=== PATIENT | male | born 1960 | race Two or more races ===

== ENCOUNTER 2025-09-07 15:00 | Inpatient (IN) | payer MEDICARE, SELFPAY ==
[2025-09-07 15:13] VITALS: BP 130/79; PULSE 84; RESP 16; TEMP 36.6; O2SAT 95
[2025-09-07 17:41] VITALS: BP 130/79; PULSE 84; RESP 16; TEMP 36.6; O2SAT 95
[2025-09-07 20:12] VITALS: BP 135/73; PULSE 75
[2025-09-07] MEDS: SACUBITRIL/VALSARTAN 24/26 MG TABLET 1 EACH PO (20:19)
[2025-09-07] MEDS: Senna/Docusate Sodium 1 Tablet 2 TABLET PO (20:20)
--- NOTE | 2025-09-07 21:21 | EX.PCM.HP.RE ---
HPI - General General Date of Admission: 09/07/25 Date of Service: 09/07/25 Chief Complaint: Here for 3 hours daily rehabilitation. HPI Narrative KIERA GOMEZ, is a 65 M who presents with followin09/01/[address] [facility]. Dizziness, left hand paresthesia, chronic blurry vision. Evaluated for stroke. 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 NIHSS 0 on admission. Bradycardia with heart rate of 49. CT head negative, dizziness thought to be 2/2 viral syndrome. He has not seen a doctor for 2 years. He later developed numbness of left face, left scalp, left arm, left leg. Imaging showed acute right medial medullary infarct without hemorrhage, significant left internal carotid artery stenosis, possible left basilar artery nonocclusive thrombus/dissection, that was not redemonstrated on CTA. 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 09/04/2025 Cardiology consulted for Echo low LVEF 45 - 50% with minor regional variations, apex appears abnormal, EKG showed normal sinus rhythm with no signs of acute ischemic changes. Recommended right and left heart catheterization. Cardiac catheterization negative without evidence of acute ischemic process. Recommended Aspirin 81mg daily, Atorvastatin 80mg qhs, Entresto 24/26mg bid, hold beta isidra 2/2 bradycardia, Jardiance 10mg daily, Aldactone to start as outpatient. 09/06/2025 Swallowing issues resolved. Recurrence and worsening of numbness/tingling with mild weakness to left upper extremity, attributed to malpositioning while sleeping. Repeat CT head no contrast negative for hemorrhagic conversion of stroke. Doppler ultrasound left upper extremity negative for DVT. PT/OT/ST. 09/07/2025 Admit to for 3 hours daily rehabilitation, strengthening, prior to discharge home with . [facility] Medical History (Updated 09/07/25 @ 21:[address] Chano Bradley MD) Acute HFrEF (heart failure with reduced ejection fraction) BMI 34.0-34.9,adult Chronic HFrEF (heart failure with reduced ejection fraction) Type 2 diabetes mellitus with hyperglycemia Hyperlipidemia Stroke Numbness of left hand Vertigo Bradycardia Debility History of left heart catheterization Hyperglycemia Glycosuria Home Medications ?Medication ?Instructions ?Recorded ?Last Taken ?Type aspirin 81 mg chewable tablet 1 tab PO DAILY heart health 09/07/25 09/07/25 History atorvastatin 80 mg tablet (Lipitor) 80 mg PO QHS cholesterol 09/07/25 09/06/25 History clopidogrel 75 mg tablet (Plavix) 75 mg PO DAILY DVT prophalaxis 09/07/25 Unknown History empagliflozin 10 mg tablet 10 mg PO DAILY glucose 09/07/25 09/07/25 History (Jardiance) meclizine 25 mg tablet 50 mg PO DAILY PRN dizziness or 09/07/25 Unknown History vertigo metformin 500 mg tablet,extended 500 mg PO DAILY glucose 09/07/25 Unknown History release 24 hr (Glucophage XR) sacubitril 24 mg-valsartan 26 mg 1 tab PO BID CHF 09/07/25 09/07/25 History tablet (Entresto) Allergy/AdvReac Type Severity Reaction Status Date / Time No Known Allergies Allergy Verified 09/07/25 15:14 Family History unable to obtain Surgical History (Updated 09/07/25 @ 15:33 by Adriana Talley) H/O right heart catheterization H/O vasectomy Social History (Updated 09/07/25 @ 21:[address] Chano Bradley MD) household members: spouse housing: house Smoking Status: Never smoker alcohol intake: current alcohol intake frequency: 0-2 drinks per day substance use type: does not use ROS Constitutional Constitutional: Reports weakness; Denies chills, fever(s) or weight gain ENT HEENT: Denies headache(s), nasal congestion or nasal discharge Cardiovascular Cardiovascular: Denies chest pain or palpitations Respiratory/Chest Respiratory/Chest: Denies cough, excessive phlegm production or shortness of breath with exertion Gastrointestinal Gastrointestinal: Denies abdominal pain, nausea or vomiting Genitourinary Genitourinary: Denies dysuria Musculoskeletal Musculoskeletal: Reports neck pain; Denies joint pain or joint swelling Integumentary Integumentary: Denies rash or wounds Neurologic Neurologic: Reports abnormal speech, dizziness, numbness, sensory deficit, tingling and weakness; Denies focal weakness Psychiatric Psychiatric: Denies anxiety, auditory hallucinations, depression, homicidal ideation or suicidal ideation Vital Signs Vital Signs Vital Signs: 09/07/25 15:13 09/07/25 15:14 09/07/25 16:50 Temperature 97.9 F Temperature Source Temporal Pulse Rate 84 Respiratory Rate 16 Respiratory Effort Normal Non-Labored Respiratory Depth Normal Respiratory Pattern Normal Blood Pressure 130/79 H Blood Pressure Mean 96 Blood Pressure Source Monitor Blood Pressure Position Sitting Blood Pressure Location Left Arm Pulse Ox 95 Oxygen Delivery Method Room Air Room Air Room Air 09/07/25 17:41 09/07/25 20:12 09/07/25 20:38 Temperature 97.9 F Temperature Source Temporal Pulse Rate 84 75 Respiratory Rate 16 Respiratory Effort Normal Non-Labored Respiratory Depth Normal Respiratory Pattern Normal Blood Pressure 130/79 H 135/73 H Blood Pressure Mean 96 93 Blood Pressure Source Monitor Monitor Blood Pressure Position Sitting Semi-Fowlers Blood Pressure Location Left Arm Left Arm Pulse Ox 95 Oxygen Delivery Method Room Air Room Air Indicators for Scoring Admitted with or Primary Diagnosis of CVA/Stroke: Yes Hx of CVA/Stroke: No Modified Reta Score MRS Score at time of Evaluation: 3-Moderate disability NIHSS NIHSS 1a. Level of Consciousness: 0 - Alert; keenly responsive 1b. LOC Questions: 0 - Answers BOTH questions correctly 2. Best Gaze: 0 - Normal 3. Visual: 0 - No visual loss 4. Facial Palsy: 0 - Normal symmetrical movements 5a. Left Arm: 1 - Drift; arm drifts downward but doesn?t hit the bed 5b. Right Arm: 0 - No drift; arm holds 90 (or 45) degrees for full 10 seconds 6a. Left Le - Drift; leg falls by the end of 5-seconds, but does not hit bed 6b. Right Le - No drift; leg holds 30-degree position for full 5 seconds 7. Limb Ataxia: 0 - Absent 8. Sensory: 1 - Bsoj-gh-sauqeybt sensory loss; 9. Best Language: 0 - No aphasia; normal 10. Dysarthria: 1 = [id number] dysarthria; 11. Extinction and Inattention: 0 - No abnormality Total: 4 Physical Exam Const alert General Appearance: cooperative HEENT normocephalic Eyes PERRL and EOMs intact bilaterally Neck supple, no JVD and no carotid bruits Resp normal respiratory effort, normal air movement and clear to auscultation bilaterally Cardio regular rate and regular rhythm GI normal to inspection, nondistended, normoactive bowel sounds, non-tender and non-distended Extremity normal capillary refill General Extremity: Negative for edema Skin no rashes or lesions noted General Skin Exam: no breakdown Neuro Neuro Narrative: Left hemiparesis, left paresthesia. Speech: speech abnormal Details: Positive for slurred (Mild. ) Psych affect normal Appearance: appropriate Results Lab / Micro Data Labs: Laboratory Results - last 24 hr 09/07/25 16:18: POC Glucose 136 H Assessment & Plan Assessment/Plan (1) Debility: (2) Bradycardia: (3) Vertigo: (4) Numbness of left hand: (5) Stroke: (6) Hyperlipidemia: (7) Type 2 diabetes mellitus with hyperglycemia: (8) BMI 34.0-34.9,adult: (9) Acute HFrEF (heart failure with reduced ejection fraction): (10) Left carotid artery stenosis: PLAN: Plan 65 year old male with below past medical history hospitalized for right stroke with left hemiparesis, complicated by acute HFrEF, cardiac catheterization negative, complicated by left carotid artery stenosis, admitted to for 3 hours daily rehabilitation, strengthening, prior to discharge home with . Debility - PT/OT/ST. Pain - Tylenol 1000mg q6 prn pain (1-10). Bowel - senna/colace 2 tablets bid, Dulcolax 10mg pr daily prn, MOM 30mL po daily prn. DVT prophylaxis - Hold, on dual antiplatelet therapy. Left carotid artery stenosis - order carotid doppler ultarsound. Stroke - Aspirin 81mg daily, Plavix 75mg daily thru 10/08/2025. Hyperlipidemia - Atorvastatin 80mg qhs. Acute HFrEF - Entresto 24/26mg bid, Jardiance 10mg daily. Vertigo - Meclizine 50mg daily prn. Diabetes Mellitus II - Metformin XR 500mg daily.
--- NOTE | 2025-09-07 22:12 | CDU_ITS ---
Reason For Study VL/Carotid Duplex Ultrasound
[2025-09-08 06:00] VITALS: BP 132/67; PULSE 70; RESP 16; TEMP 37.1; O2SAT 96
[2025-09-08 06:16] LABS: Hematocrit 49.5 % (40-54); Hemoglobin 16.7 g/dL (13.0-16.5); Immature Granulocytes Count 0.040 X10^3/uL (0.0-0.0); Mean Corp Hgb Conc 33.7 g/dL (32-36); Mean Corpuscular Volume 85.9 fL (80-94); Mean Platelet Vol. 9.5 fl (6.2-12.0); NRBC Flagged by Analyzer 0 % (0-5); Platelet Count 214 K/mm3 (150-450); RBC Distribution Width CV 12.5 % (11.6-14.6); RBC Distribution Width SD 38.7 fl (35.1-43.9); Red Blood Count 5.76 M/mm3 (4.6-6.2); White Blood Count 9.0 K/mm3 (4.4-11.0)
[2025-09-08 06:53] LABS: AST(SGOT) 37 U/L (<=37); Alanine Aminotransfer ALT/SGPT 66 U/L (<=46); Albumin, Serum 4.2 g/dL (3.4-4.8); Alkaline Phosphatase 71 U/L (40-129); Anion Gap 12 (5-15); BUN 27 mg/dL (4-19); BUN/Creat Ratio 31.2 RATIO (10-20); Calcium,Total 9.0 mg/dL (7.6-11.0); Carbon Dioxide 20.8 mmol/L (21.0-32.0); Chloride 104 mmol/L (98-108); Globulin 2.6 g/dL (2.2-4.2); Glucose 120 mg/dL (70-99); Magnesium 2.4 mg/dL (1.5-2.2); Potassium 4.5 mmol/L (3.3-5.1)
[2025-09-08 07:18] VITALS: O2SAT 92
[2025-09-08 07:26] VITALS: BMI 32.6
[2025-09-08] MEDS: metFORMIN (XR) 500 MG Tablet PO (08:36)
[2025-09-08] MEDS: Senna/Docusate Sodium 1 Tablet 2 TABLET PO ×2 (08:36→20:50)
[2025-09-08] MEDS: SACUBITRIL/VALSARTAN 24/26 MG TABLET 1 EACH PO ×2 (08:36→20:50)
--- NOTE | 2025-09-08 11:53 | REHABEVAL_ITS ---
Admission Information
--- NOTE | 2025-09-08 11:53 | PCM.RU.PYE ---
Admission Information Primary Diagnosis:: Stroke. Status Changes from Prescreening?: No changes Identified Actual Problem List:: Falls, Mobility Impaired, Self Care Deficit, Ineffective Communication, Know.Dfct/Disease Process, Know.Dfct of Medicaitons, Diabetes, Hyperglycemia, Diabetes, Hypoglycemia and Alteration-Leisure Activ. Potential Problem List:: DVT, Bleeding, Infection, UTI, Aspiration, Falls, Skin Integrity and Depression Risk of Complications DVT: LMWH, MIRNA Hose and Sequential Compression Device Bleeding: Monitor Lab Values, Nursing to Teach Precautions for anti-coagulation therapy., Wound, if applicable, to be assessed every shift. and Stroke patients assessed for lethargy or change in status. Infection: Clinical Staff to Monitor for S/S of infection: and S/S of infection include fever, redness, warmth, etc. Urinary Tract Infection: Monitor for frequency, burning, discomfort, or incontinence. and Nursing will obtain urine sample for urinalysis and C&S when ordered. Aspiration: Clinical staff will monitor for coughing, drooling, congestion., Speech will evaluate swallowing and dsyphasia. and Nursing will monitor patient swallowing during meals. Falls: Patient will be evaluated for Fall Precautions and Patient will be placed on Fall Precautions as indicated per protocol. Skin Breakdown: Nursing will assess skin daily using assessment tool. and Nursing will place on Skin Breakdown Precautions as indicated. Pain: Clinical staff will assess patient's pain level per protocol., Medications will be given, if needed, and the pain level reassessed. and Other methods: Massage, distraction, decrease stimulus, etc. used PRN. Plan of Care Patient requires physician specializing in physical medicine and rehab oversight to provide close medical supervision of rehab issues including: Pain Management, Sleep Problems, Bowel and Bladder, Medical and co-morbidity Management, DVT prophylaxis, Rehabilitation Leadership and Coordination of treatment team Patient needs Physical Therapy: For a minimum of 1 hour Patient needs Physical Therapy to improve:: Mobility, Strengthening, Transfers, Stretching, ROM, Endurance, Stairs, Gait and Balance Patient needs Occupational Therapy: For a minimum of 1 hour Patient needs Occupational Therapy to improve ADL's incl.: Eating, Grooming, Bathing, Dressing, Toileting, Toilet transfers, Community Reintegration, Higher functioning activities, Household tasks, Adaptive Equipment, Splinting and Other activities as determined Patient requires speech therapy: For a minimum of 1 hour Patient requires speech therapy for: Swallowing, Cognition, Language Skills and Compensatory Strategies Patient requires 24/7 Rehabilitation Nursing for: Pain Issues, Identifying and preventing risk factors, Monitoring and reporting current medical conditions, Assisting with ambulation, transfer, and all ADL's, Teaching patients about disease process and medications, Family teaching, Providing safe environment, Bowel and Bladder Issues, Skin integrity and Medication Management Patient needs Profile Trimmer/ Case Management for: Discharge Planning, Arranging Home Equipment or Services and Family Interventions Patient needs Dietary and Nutrition Services for: Adequate Nutrition, Nutritional Supplements and Nutritional Education Goals Goals Patient will remain: free from falls and or injury at time of discharge. Patient will perform bed mobility at: - (Independent.) Patient will complete transfers from bed to chair at: - (FWW with SBA to SUP.) Patient will ambulate: - (200 feet FWW with CGA to SBA.) Patient will complete upper body dressing at: MOD I level of assist. Patient will complete lower body dressing at: MOD I level of assist. Patient will complete toileting at: MOD I level of assist. Patient will perform bathing at: MOD I level of assist. Patient will achieve: - (4 steps with left side HR with FWW or Orlando Walker with CGA to SBA x 1.) Patient will have pain level of: of 3 or less Patient's skin will: remain intact and free from infection. Patient will receive: adequate nutrition. Discharge Planning Pt Prognosis for Sig. Practical Improv. w/in Reasonable Time: Good Estimated Length of stay (days): 14 Anticipated D/C Destination: Home with Outpt Therapy Was Preadmission Assessment Accurate?: Yes
[2025-09-08 18:00] VITALS: BP 113/72; PULSE 72; RESP 18; TEMP 36.1; O2SAT 94
[2025-09-09 06:00] VITALS: BP 127/68; PULSE 84; RESP 17; TEMP 36.7; O2SAT 96
[2025-09-09] MEDS: SACUBITRIL/VALSARTAN 24/26 MG TABLET 1 EACH PO ×2 (07:46→20:51)
[2025-09-09] MEDS: metFORMIN (XR) 500 MG Tablet PO (07:46)
[2025-09-09] MEDS: Senna/Docusate Sodium 1 Tablet 2 TABLET PO ×2 (07:47→20:51)
[2025-09-09 17:13] VITALS: BP 118/81; PULSE 69; RESP 18; TEMP 36.6; O2SAT 96
[2025-09-10 06:16] VITALS: BP 118/78; PULSE 64; RESP 16; TEMP 36.6; O2SAT 95
[2025-09-10] MEDS: metFORMIN (XR) 500 MG Tablet PO (07:55)
[2025-09-10] MEDS: SACUBITRIL/VALSARTAN 24/26 MG TABLET 1 EACH PO ×2 (07:56→21:49)
[2025-09-10] MEDS: Senna/Docusate Sodium 1 Tablet 2 TABLET PO ×2 (07:56→21:49)
[2025-09-10 07:59] VITALS: O2SAT 95
--- NOTE | 2025-09-10 08:33 | CASEMGMT ---
Social Work IDT met with patient at bedside, and participated via conference call for Team meeting. 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 Educated to [facility] insurance with [employer] 09/12 and continued stay is not guaranteed with each review, and advanced notice is not required. Pt is currently x2 assist and goal is to get closer to PLOF before DC. SW provided stroke support group brochure, ASA Life After a Stroke and Caregiver Guide to a Stroke. Will ReTeam weekly. SW will continue to follow for DC planning. 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
--- NOTE | 2025-09-10 09:07 | EX.PCM.PN.RE ---
Subjective Subjective Patient seen, examined, also seen on team rounds. He has no new problems, concerns, issues, complaints. He is progressing with therapy. Objective Data Objective Data Vital Signs: Vital Signs Temp Pulse Resp BP Pulse Ox O2 Del Method 97.9 F 64 16 118/78 95 Room Air 09/10/25 06:16 09/10/25 06:16 09/10/25 06:16 09/10/25 06:16 09/10/25 07:59 09/10/25 07:59 Oxygen Delivery Method Room Air Weight: 97.522 kg Body Mass Index (BMI) 32.6 Intake & Output: Intake and Output for Last 24 Hours 09/08/25 09/09/25 09/10/25 23:59 23:59 23:59 Intake Total 2400 / 2400 2550 / 2550 440 / 440 Output Total 2350 / 2350 2375 / 2375 650 / 650 Balance 50 / 50 175 / 175 -210 / -210 Lab / Micro Data 09/08/25 06:05 09/08/25 06:05 Labs: Laboratory Results - last 24 hr 09/09/25 11:24: POC Glucose 133 H 09/09/25 16:33: POC Glucose 134 H 09/09/25 21:31: POC Glucose 125 H 09/10/25 06:18: POC Glucose 106 Indicators for Scoring Admitted with or Primary Diagnosis of CVA/Stroke: Yes Hx of CVA/Stroke: No Modified Warren Score MRS Score at time of Evaluation: 3-Moderate disability Physical Exam Const alert General Appearance: cooperative HEENT normocephalic Eyes PERRL and EOMs intact bilaterally Neck supple, no JVD and no carotid bruits Resp normal respiratory effort, normal air movement and clear to auscultation bilaterally Cardio regular rate and regular rhythm GI normal to inspection, nondistended, normoactive bowel sounds, non-tender and non-distended Extremity normal capillary refill General Extremity: Negative for edema Skin no rashes or lesions noted General Skin Exam: no breakdown Neuro Neuro Narrative: Left hemiparesis, left paresthesia. Speech: speech abnormal Details: Positive for slurred (Mild. ) Psych affect normal Appearance: appropriate Assessment & Plan Assessment/Plan (1) Debility: (2) Bradycardia: (3) Vertigo: (4) Numbness of left hand: (5) Stroke: (6) Hyperlipidemia: (7) Type 2 diabetes mellitus with hyperglycemia: (8) BMI 34.0-34.9,adult: (9) Acute HFrEF (heart failure with reduced ejection fraction): (10) Left carotid artery stenosis: PLAN: Plan 65 year old male with below past medical history hospitalized for right stroke with left hemiparesis, complicated by acute HFrEF, cardiac catheterization negative, complicated by left carotid artery stenosis, admitted to for 3 hours daily rehabilitation, strengthening, prior to discharge home with . Debility - PT/OT/ST. Pain - Tylenol 1000mg q6 prn pain (1-10). Bowel - senna/colace 2 tablets bid, Dulcolax 10mg pr daily prn, MOM 30mL po daily prn. DVT prophylaxis - Hold, on dual antiplatelet therapy. Left carotid artery stenosis - order carotid doppler ultarsound. Stroke - Aspirin 81mg daily, Plavix 75mg daily thru 10/08/2025. Hyperlipidemia - Atorvastatin 80mg qhs. Acute HFrEF - Entresto 24/26mg bid, Jardiance 10mg daily. Vertigo - Meclizine 50mg daily prn. Diabetes Mellitus II - Metformin XR 500mg daily.
--- NOTE | 2025-09-10 15:55 | CHAPLAIN ---
Type of Pastoral Visit _x__ Initial Visit ___ Follow-up Visit ___ On-call Visit ___ General Patient Visit ___ Spiritual Assessment ___ Family Conference ___ Bereavement ___ Rapid Response ___ Code Blue ___ Other (describe below) Pastoral Care Referral From _x__ Patient ___ Family ___ Nurse ___ Physician ___ Cable Splicer ___ Tissue Technologist ___ Other (describe below) Sacrament/Intervention _x__ Active listening ___ Anointing ___ Rastafarian ___ Bereavement ___ Communion ___ Kirsten exploration ___ _x__ Life review _x__ Prayer ___ Reconciliation ___ Sacrament of Sick _x__ Supportive presence ___ Wedding ___ Other (describe below) Pastoral Comments patient is welcoming and talkative about his life; pt admits to sudden change in life and 'I've not been in the hospital before' and this new experience; pt is asked about how he is managing and what perspective or thoughts about life have changed; 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
--- NOTE | 2025-09-10 17:25 | NURSING ---
Dr. Bradley reviewed carotid US report.
[2025-09-10 17:43] VITALS: BP 123/86; PULSE 65; RESP 18; TEMP 36.4; O2SAT 96
[2025-09-10 19:51] VITALS: BMI 32.6
[2025-09-10 19:52] VITALS: RESP 16; O2SAT 96
[2025-09-11 06:00] VITALS: BP 114/71; PULSE 71; RESP 15; TEMP 36.5; O2SAT 96
[2025-09-11] MEDS: SACUBITRIL/VALSARTAN 24/26 MG TABLET 1 EACH PO ×2 (07:30→19:43)
[2025-09-11] MEDS: Senna/Docusate Sodium 1 Tablet 2 TABLET PO ×2 (07:30→19:42)
[2025-09-11] MEDS: metFORMIN (XR) 500 MG Tablet PO (07:31)
--- NOTE | 2025-09-11 08:28 | EX.PCM.PN.RE ---
Subjective Subjective Patient seen, examined. Carotid duplex yesterday showed 50% right, 70% left. We discussed findings, since stroke was right with left werner, recommend outpatient follow up of carotid artery stenosis, urgent intervention not necessary, continue medical therapy for now. No acute events overnight, no new complaints. Objective Data Objective Data Vital Signs: Vital Signs Temp Pulse Resp BP Pulse Ox O2 Del Method 97.7 F L 71 15 114/71 96 Room Air 09/11/25 06:00 09/11/25 06:00 09/11/25 06:00 09/11/25 06:00 09/11/25 06:00 09/11/25 06:00 Oxygen Delivery Method Room Air Weight: 97.522 kg Body Mass Index (BMI) 32.6 Intake & Output: Intake and Output for Last 24 Hours 09/09/25 09/10/25 09/11/25 23:59 23:59 23:59 Intake Total 2550 / 2550 1880 / 1880 790 / 790 Output Total 2375 / 2375 1725 / 1725 720 / 720 Balance 175 / 175 155 / 155 70 / 70 Lab / Micro Data 09/08/25 06:05 09/08/25 06:05 Labs: Laboratory Results - last 24 hr 09/10/25 11:12: POC Glucose 127 H 09/10/25 16:19: POC Glucose 109 H 09/10/25 21:52: POC Glucose 103 09/11/25 06:37: POC Glucose 123 H Radiography Diagnostic Testing: Radiology Impression Carotid Duplex 09/07/25 22:12 Interpretation Summary Mild (<50%) stenosis right extracranial internal carotid. Severe (>70%) stenosis left extracranial internal carotid. Patent and antegrade vertebrals bilaterally Ordering Physician: Chano Bradley Chi Performed By: Malou Carrillo RVT Indicators for Scoring Admitted with or Primary Diagnosis of CVA/Stroke: Yes Hx of CVA/Stroke: Yes Modified Reta Score MRS Score at time of Evaluation: 3-Moderate disability Physical Exam Const alert General Appearance: cooperative HEENT normocephalic Eyes PERRL and EOMs intact bilaterally Neck supple, no JVD and no carotid bruits Resp normal respiratory effort, normal air movement and clear to auscultation bilaterally Cardio regular rate and regular rhythm GI normal to inspection, nondistended, normoactive bowel sounds, non-tender and non-distended Extremity normal capillary refill General Extremity: Negative for edema Skin no rashes or lesions noted General Skin Exam: no breakdown Neuro Neuro Narrative: Left hemiparesis, left paresthesia. Speech: speech abnormal Details: Positive for slurred (Mild. ) Psych affect normal Appearance: appropriate Assessment & Plan Assessment/Plan (1) Debility: (2) Bradycardia: (3) Vertigo: (4) Numbness of left hand: (5) Stroke: (6) Hyperlipidemia: (7) Type 2 diabetes mellitus with hyperglycemia: (8) BMI 34.0-34.9,adult: (9) Acute HFrEF (heart failure with reduced ejection fraction): (10) Left carotid artery stenosis: PLAN: Plan 65 year old male with below past medical history hospitalized for right stroke with left hemiparesis, complicated by acute HFrEF, cardiac catheterization negative, complicated by left carotid artery stenosis, admitted to for 3 hours daily rehabilitation, strengthening, prior to discharge home with . Debility - PT/OT/ST. Pain - Tylenol 1000mg q6 prn pain (1-10). Bowel - senna/colace 2 tablets bid, Dulcolax 10mg pr daily prn, MOM 30mL po daily prn. DVT prophylaxis - Hold, on dual antiplatelet therapy. Left carotid artery stenosis - 70%, recommend outpatient follow up with PCP/Vascular surgery to consider intervention. Stroke - Aspirin 81mg daily, Plavix 75mg daily thru 10/08/2025. Hyperlipidemia - Atorvastatin 80mg qhs. Acute HFrEF - Entresto 24/26mg bid, Jardiance 10mg daily. Vertigo - Meclizine 50mg daily prn. Diabetes Mellitus II - Metformin XR 500mg daily.
[2025-09-11 08:42] VITALS: BMI 32.6
[2025-09-11 17:33] VITALS: BP 105/73; PULSE 64; RESP 18; TEMP 36.1; O2SAT 96
[2025-09-11 19:36] VITALS: BMI 32.6
[2025-09-11 20:50] VITALS: O2SAT 96
[2025-09-11 22:50] VITALS: BMI 32.6
[2025-09-12 05:54] VITALS: BP 114/75; PULSE 65; RESP 16; TEMP 36.4; O2SAT 97
[2025-09-12] MEDS: SACUBITRIL/VALSARTAN 24/26 MG TABLET 1 EACH PO ×2 (07:55→20:33)
[2025-09-12] MEDS: Senna/Docusate Sodium 1 Tablet 2 TABLET PO ×2 (07:55→20:33)
[2025-09-12] MEDS: metFORMIN (XR) 500 MG Tablet PO (07:55)
[2025-09-12 07:57] VITALS: BP 139/68; PULSE 66
--- NOTE | 2025-09-12 08:45 | EX.PCM.PN.RE ---
Subjective Subjective Patient seen, examined. No acute events overnight, no new complaints. He is starting therapy with [facility]. He is continuing to progress with therapy. Objective Data Objective Data Vital Signs: Vital Signs Temp Pulse Resp BP Pulse Ox O2 Del Method 97.6 F L 66 16 139/68 H 97 Room Air 09/12/25 05:54 09/12/25 07:57 09/12/25 05:54 09/12/25 07:57 09/12/25 05:54 09/12/25 05:54 Oxygen Delivery Method Room Air Weight: 97.522 kg Body Mass Index (BMI) 32.6 Intake & Output: Intake and Output for Last 24 Hours 09/10/25 09/11/25 09/12/25 23:59 23:59 23:59 Intake Total 1880 / 1880 2140 / 2140 250 / 250 Output Total 1725 / 1725 1595 / 1595 650 / 650 Balance 155 / 155 545 / 545 -400 / -400 Lab / Micro Data 09/08/25 06:05 09/08/25 06:05 Labs: Laboratory Results - last 24 hr 09/11/25 11:42: POC Glucose 100 09/11/25 16:00: POC Glucose 113 H 09/12/25 06:41: POC Glucose 120 H Indicators for Scoring Admitted with or Primary Diagnosis of CVA/Stroke: Yes Hx of CVA/Stroke: Yes Modified Wood Score MRS Score at time of Evaluation: 3-Moderate disability Physical Exam Const alert General Appearance: cooperative HEENT normocephalic Eyes PERRL and EOMs intact bilaterally Neck supple, no JVD and no carotid bruits Resp normal respiratory effort, normal air movement and clear to auscultation bilaterally Cardio regular rate and regular rhythm GI normal to inspection, nondistended, normoactive bowel sounds, non-tender and non-distended Extremity normal capillary refill General Extremity: Negative for edema Skin no rashes or lesions noted General Skin Exam: no breakdown Neuro Neuro Narrative: Left hemiparesis, left paresthesia. Speech: speech abnormal Details: Positive for slurred (Mild. ) Psych affect normal Appearance: appropriate Assessment & Plan Assessment/Plan (1) Debility: (2) Bradycardia: (3) Vertigo: (4) Numbness of left hand: (5) Stroke: (6) Hyperlipidemia: (7) Type 2 diabetes mellitus with hyperglycemia: (8) BMI 34.0-34.9,adult: (9) Acute HFrEF (heart failure with reduced ejection fraction): (10) Left carotid artery stenosis: PLAN: Plan 65 year old male with below past medical history hospitalized for right stroke with left hemiparesis, complicated by acute HFrEF, cardiac catheterization negative, complicated by left carotid artery stenosis, admitted to for 3 hours daily rehabilitation, strengthening, prior to discharge home with . Debility - PT/OT/ST. Pain - Tylenol 1000mg q6 prn pain (1-10). Bowel - senna/colace 2 tablets bid, Dulcolax 10mg pr daily prn, MOM 30mL po daily prn. DVT prophylaxis - Hold, on dual antiplatelet therapy. Left carotid artery stenosis - 70%, recommend outpatient follow up with PCP/Vascular surgery to consider intervention. Stroke - Aspirin 81mg daily, Plavix 75mg daily thru 10/08/2025. Hyperlipidemia - Atorvastatin 80mg qhs. Acute HFrEF - Entresto 24/26mg bid, Jardiance 10mg daily. Vertigo - Meclizine 50mg daily prn. Diabetes Mellitus II - Metformin XR 500mg daily.
[2025-09-12 18:00] VITALS: BP 135/72; PULSE 72; RESP 16; TEMP 37; O2SAT 96
[2025-09-12 18:09] VITALS: BMI 32.6
[2025-09-13 05:00] VITALS: BMI 32.6
[2025-09-13 05:51] VITALS: BP 114/66; PULSE 72; RESP 16; TEMP 36.6; O2SAT 94
[2025-09-13] MEDS: metFORMIN (XR) 500 MG Tablet PO (08:59)
[2025-09-13] MEDS: Senna/Docusate Sodium 1 Tablet 2 TABLET PO ×2 (09:00→19:59)
[2025-09-13] MEDS: SACUBITRIL/VALSARTAN 24/26 MG TABLET 1 EACH PO ×2 (09:00→19:59)
[2025-09-13 17:00] VITALS: BMI 32.6
[2025-09-13 18:00] VITALS: BP 120/75; PULSE 68; RESP 16; TEMP 36.5; O2SAT 96
[2025-09-14 04:49] VITALS: BMI 32.6
[2025-09-14 06:00] VITALS: BP 116/72; PULSE 81; RESP 16; TEMP 36.4; O2SAT 98
[2025-09-14 06:21] VITALS: BMI 32.1
[2025-09-14] MEDS: metFORMIN (XR) 500 MG Tablet PO (08:22)
[2025-09-14] MEDS: Senna/Docusate Sodium 1 Tablet 2 TABLET PO (08:22)
[2025-09-14] MEDS: SACUBITRIL/VALSARTAN 24/26 MG TABLET 1 EACH PO ×2 (08:22→20:45)
[2025-09-14 08:27] VITALS: BP 121/73; PULSE 72
[2025-09-14 12:32] VITALS: BMI 32.1
--- NOTE | 2025-09-14 13:51 | VDLE_ITS ---
Reason For Study VL/Venous Duplex US, Unilateral
--- NOTE | 2025-09-14 14:18 | NURSING ---
Fransico that performed the Doppler at this time on Mr. Mcwilliams informed this nurse that the Doppler was negative.
--- NOTE | 2025-09-14 15:00 | CASEMGMT ---
Social Work SW spoke with the patient. Patient did not want to complete POA/LW paperwork but wanted information so he can think about it. SW provided the patient with an informational packet, a blank POA/LW paperwork and a phone number to call after DC to receive assistance with completing the POA/LW. DOMI Davis
[2025-09-14 18:00] VITALS: BP 122/75; PULSE 69; RESP 17; TEMP 36.2; O2SAT 97
[2025-09-14 20:43] VITALS: BP 131/74; PULSE 63
[2025-09-14 22:48] VITALS: BMI 32.1
[2025-09-15 05:57] VITALS: BP 112/67; PULSE 60; RESP 16; TEMP 36.8; O2SAT 93
[2025-09-15] MEDS: metFORMIN (XR) 500 MG Tablet PO (08:16)
[2025-09-15] MEDS: SACUBITRIL/VALSARTAN 24/26 MG TABLET 1 EACH PO ×2 (08:16→20:24)
[2025-09-15 08:23] VITALS: BP 111/67; PULSE 68
[2025-09-15 12:06] VITALS: BMI 32.1
[2025-09-15 17:53] VITALS: BP 124/80; PULSE 67; RESP 16; TEMP 36.3; O2SAT 93
[2025-09-16 00:07] VITALS: BMI 32.1
[2025-09-16 07:03] VITALS: BP 104/74; PULSE 63; RESP 16; TEMP 36.1; O2SAT 95
[2025-09-16] MEDS: SACUBITRIL/VALSARTAN 24/26 MG TABLET 1 EACH PO ×2 (07:54→20:31)
[2025-09-16] MEDS: metFORMIN (XR) 500 MG Tablet PO (07:54)
[2025-09-16] MEDS: Senna/Docusate Sodium 1 Tablet 2 TABLET PO ×2 (07:55→20:34)
[2025-09-16 07:59] VITALS: BP 108/67; PULSE 64
[2025-09-16 15:39] VITALS: BMI 32.1
[2025-09-16 17:53] VITALS: BP 142/84; PULSE 78; RESP 18; TEMP 36.4; O2SAT 96
[2025-09-16 21:37] VITALS: BMI 32.1
[2025-09-17 06:05] VITALS: BP 118/70; PULSE 66; RESP 16; TEMP 36.3; O2SAT 96
[2025-09-17] MEDS: Senna/Docusate Sodium 1 Tablet 2 TABLET PO ×2 (07:39→20:50)
[2025-09-17] MEDS: SACUBITRIL/VALSARTAN 24/26 MG TABLET 1 EACH PO ×2 (07:39→20:50)
[2025-09-17] MEDS: metFORMIN (XR) 500 MG Tablet PO (07:40)
--- NOTE | 2025-09-17 07:46 | EX.PCM.PN.RE ---
Subjective Subjective Patient seen, examined. He is working with Flaca from [employer]. He c/o left leg pain/cramp 3 days ago, Doppler ultrasound left lower extremity negative dvt. he has been wearing 2 pound weight on left ankle to work with therapy. Tylenol helpful, I think the pain is musculoskeletal, recommend Tylenol prior to therapy. Objective Data Objective Data Vital Signs: Vital Signs Temp Pulse Resp BP Pulse Ox O2 Del Method 97.3 F L 66 16 118/70 96 Room Air 09/17/25 06:05 09/17/25 06:05 09/17/25 06:05 09/17/25 06:05 09/17/25 06:05 09/17/25 06:05 Oxygen Delivery Method Room Air Weight: 96.162 kg Body Mass Index (BMI) 32.1 Intake & Output: Intake and Output for Last 24 Hours 09/15/25 09/16/25 09/17/25 23:59 23:59 23:59 Intake Total 1730 / 1730 1380 / 1380 Output Total 1850 / 1850 2150 / 2150 825 / 825 Balance -120 / -120 -770 / -770 -825 / -825 Lab / Micro Data 09/08/25 06:05 09/08/25 06:05 Labs: Laboratory Results - last 24 hr 09/16/25 16:04: POC Glucose 111 H 09/17/25 06:23: POC Glucose 109 H Radiography Diagnostic Testing: Radiology Impression Venous Doppler Study 09/14/25 13:51 Interpretation Summary Deep veins of the left lower extremity are patent and compressible segmentally. There is no evidence of left lower extremity deep vein thrombosis. Valvular competence appears intact within the proximal deep venous system on the left . The left great saphenous vein appears patent and compressible segmentally. Ordering Physician: Chano Bradley Chi Referring Physician: Chano Bradley Chi Performed By: Fransico Sahni RVT Indicators for Scoring Admitted with or Primary Diagnosis of CVA/Stroke: Yes Hx of CVA/Stroke: Yes Modified [place] Score MRS Score at time of Evaluation: 3-Moderate disability Physical Exam Const alert General Appearance: cooperative HEENT normocephalic Eyes PERRL and EOMs intact bilaterally Neck supple, no JVD and no carotid bruits Resp normal respiratory effort, normal air movement and clear to auscultation bilaterally Cardio regular rate and regular rhythm GI normal to inspection, nondistended, normoactive bowel sounds, non-tender and non-distended Extremity normal capillary refill General Extremity: Negative for edema Skin no rashes or lesions noted General Skin Exam: no breakdown Neuro Neuro Narrative: Left hemiparesis, left paresthesia. Speech: speech abnormal Details: Positive for slurred (Mild. ) Psych affect normal Appearance: appropriate Assessment & Plan Assessment/Plan (1) Debility: (2) Bradycardia: (3) Vertigo: (4) Numbness of left hand: (5) Stroke: (6) Hyperlipidemia: (7) Type 2 diabetes mellitus with hyperglycemia: (8) BMI 34.0-34.9,adult: (9) Acute HFrEF (heart failure with reduced ejection fraction): (10) Left carotid artery stenosis: PLAN: Plan 65 year old male with below past medical history hospitalized for right stroke with left hemiparesis, complicated by acute HFrEF, cardiac catheterization negative, complicated by left carotid artery stenosis, admitted to for 3 hours daily rehabilitation, strengthening, prior to discharge home with . Debility - PT/OT/ST. Pain - Tylenol 1000mg q6 prn pain (1-10). Bowel - senna/colace 2 tablets bid, Dulcolax 10mg pr daily prn, MOM 30mL po daily prn. DVT prophylaxis - Hold, on dual antiplatelet therapy. Left carotid artery stenosis - 70%, recommend outpatient follow up with PCP/Vascular surgery to consider intervention. Stroke - Aspirin 81mg daily, Plavix 75mg daily thru 10/08/2025. Hyperlipidemia - Atorvastatin 80mg qhs. Acute HFrEF - Entresto 24/26mg bid, Jardiance 10mg daily. Vertigo - Meclizine 50mg daily prn. Diabetes Mellitus II - Metformin XR 500mg daily. Left lower extremity pain - Doppler ultrasound left lower extremity negative dvt, recommend Tylenol prior to therapy.
[2025-09-17 07:57] VITALS: BP 118/70; PULSE 77
--- NOTE | 2025-09-17 08:44 | CASEMGMT ---
Social Work IDT met with patient at bedside and participated via conference call for Team meeting. Discussed patient's progress in PT/OT/SN/MD/[employer]. Educated to [facility] insurance with NRD 09/19 and continued stay is not guaranteed with each review. Pt is progressing well and the goal is for pt to return home with . Inquired if feels comfortable and able to care for pt at home, once DC date issued by insurance. Scheduled therapy training 09/20 at 0800, as is off work Wednesday and 's. SW inquired if pt prefers skilled HHC vs OP therapy. Pt prefers HHC first. SW provided list of skilled HHC agencies within geographical area, [place] with insurance, that include quality and resource data via [employer] guide. SW inquired about DME needs. Pt requesting [facility] and will look at pt's current walker at home to make sure it has wheels. SW will continue to follow for DC planning. Loren Last [employer]
[2025-09-17 11:12] VITALS: BMI 32.1
[2025-09-17 16:45] VITALS: BP 118/75; PULSE 69; RESP 15; TEMP 36.4; O2SAT 98
[2025-09-17 20:13] VITALS: BMI 32.1
[2025-09-18 05:35] VITALS: BP 120/78; PULSE 83; RESP 16; TEMP 36.4; O2SAT 93
[2025-09-18] MEDS: metFORMIN (XR) 500 MG Tablet PO (08:21)
[2025-09-18] MEDS: SACUBITRIL/VALSARTAN 24/26 MG TABLET 1 EACH PO ×2 (08:22→20:31)
[2025-09-18] MEDS: Senna/Docusate Sodium 1 Tablet 2 TABLET PO ×2 (08:22→20:31)
--- NOTE | 2025-09-18 08:52 | EX.PCM.PN.RE ---
Subjective Subjective Patient seen, examined. He is working with PT, no acute events overnight. He is asking for something to help him sleep tonight. Doing well with therapy. Objective Data Objective Data Vital Signs: Vital Signs Temp Pulse Resp BP Pulse Ox O2 Del Method 97.6 F L 83 16 120/78 93 Room Air 09/18/25 05:35 09/18/25 05:35 09/18/25 05:35 09/18/25 05:35 09/18/25 05:35 09/18/25 05:35 Oxygen Delivery Method Room Air Weight: 96.162 kg Body Mass Index (BMI) 32.1 Intake & Output: Intake and Output for Last 24 Hours 09/16/25 09/17/25 09/18/25 23:59 23:59 23:59 Intake Total 1380 / 1380 1580 / 1580 750 / 750 Output Total 2150 / 2150 2275 / 2275 525 / 525 Balance -770 / -770 -695 / -695 225 / 225 Lab / Micro Data 09/08/25 06:05 09/08/25 06:05 Labs: Laboratory Results - last 24 hr 09/17/25 15:59: POC Glucose 99 09/18/25 05:33: POC Glucose 126 H Indicators for Scoring Admitted with or Primary Diagnosis of CVA/Stroke: Yes Hx of CVA/Stroke: Yes Modified Reta Score MRS Score at time of Evaluation: 3-Moderate disability Physical Exam Const alert General Appearance: cooperative HEENT normocephalic Eyes PERRL and EOMs intact bilaterally Neck supple, no JVD and no carotid bruits Resp normal respiratory effort, normal air movement and clear to auscultation bilaterally Cardio regular rate and regular rhythm GI normal to inspection, nondistended, normoactive bowel sounds, non-tender and non-distended Extremity normal capillary refill General Extremity: Negative for edema Skin no rashes or lesions noted General Skin Exam: no breakdown Neuro Neuro Narrative: Left hemiparesis, left paresthesia. Speech: speech abnormal Details: Positive for slurred (Mild. ) Psych affect normal Appearance: appropriate Assessment & Plan Assessment/Plan (1) Debility: (2) Bradycardia: (3) Vertigo: (4) Numbness of left hand: (5) Stroke: (6) Hyperlipidemia: (7) Type 2 diabetes mellitus with hyperglycemia: (8) BMI 34.0-34.9,adult: (9) Acute HFrEF (heart failure with reduced ejection fraction): (10) Left carotid artery stenosis: PLAN: Plan 65 year old male with below past medical history hospitalized for right stroke with left hemiparesis, complicated by acute HFrEF, cardiac catheterization negative, complicated by left carotid artery stenosis, admitted to for 3 hours daily rehabilitation, strengthening, prior to discharge home with . Debility - PT/OT/ST. Pain - Tylenol 1000mg q6 prn pain (1-10). Bowel - senna/colace 2 tablets bid, Dulcolax 10mg pr daily prn, MOM 30mL po daily prn. DVT prophylaxis - Hold, on dual antiplatelet therapy. Left carotid artery stenosis - 70%, recommend outpatient follow up with PCP/Vascular surgery to consider intervention. Stroke - Aspirin 81mg daily, Plavix 75mg daily thru 10/08/2025. Hyperlipidemia - Atorvastatin 80mg qhs. Acute HFrEF - Entresto 24/26mg bid, Jardiance 10mg daily. Vertigo - Meclizine 50mg daily prn. Diabetes Mellitus II - Metformin XR 500mg daily. Left lower extremity pain - Doppler ultrasound left lower extremity negative dvt, recommend Tylenol prior to therapy. Insomnia - add Melatonin 3mg qhs.
[2025-09-18 13:07] VITALS: BMI 32.1
[2025-09-18 18:00] VITALS: BP 120/81; PULSE 70; RESP 17; TEMP 36.2; O2SAT 95
[2025-09-18] MEDS: MELATONIN 3 MG TABLET PO (20:31)
[2025-09-19 02:40] VITALS: BMI 32.1
[2025-09-19 05:27] VITALS: BP 113/81; PULSE 73; RESP 18; TEMP 36.3; O2SAT 92
[2025-09-19] MEDS: metFORMIN (XR) 500 MG Tablet PO (07:39)
[2025-09-19] MEDS: SACUBITRIL/VALSARTAN 24/26 MG TABLET 1 EACH PO ×2 (07:40→21:24)
[2025-09-19] MEDS: Senna/Docusate Sodium 1 Tablet 2 TABLET PO ×2 (07:40→21:23)
[2025-09-19 07:44] VITALS: BP 118/70; PULSE 78
--- NOTE | 2025-09-19 08:34 | EX.PCM.PN.RE ---
Subjective Subjective Patient seen, examined. Sitting in chair. Patient states Melatonin was not strong enough last night, will increase Melatonin from 3mg to 10mg qhs. He has no other complaints. No acute events overnight. Objective Data Objective Data Vital Signs: Vital Signs Temp Pulse Resp BP Pulse Ox O2 Del Method 97.3 F L 78 18 118/70 92 Room Air 09/19/25 05:27 09/19/25 07:44 09/19/25 05:27 09/19/25 07:44 09/19/25 05:27 09/19/25 05:27 Oxygen Delivery Method Room Air Weight: 96.162 kg Body Mass Index (BMI) 32.1 Intake & Output: Intake and Output for Last 24 Hours 09/17/25 09/18/25 09/19/25 23:59 23:59 23:59 Intake Total 1580 / 1580 2110 / 2110 Output Total 2275 / 2275 1900 / 1900 975 / 975 Balance -695 / -695 210 / 210 -975 / -975 Lab / Micro Data 09/08/25 06:05 09/08/25 06:05 Labs: Laboratory Results - last 24 hr 09/18/25 17:18: POC Glucose 105 09/19/25 05:25: POC Glucose 114 H Indicators for Scoring Admitted with or Primary Diagnosis of CVA/Stroke: Yes Hx of CVA/Stroke: Yes Modified Reta Score MRS Score at time of Evaluation: 3-Moderate disability Physical Exam Const alert General Appearance: cooperative HEENT normocephalic Eyes PERRL and EOMs intact bilaterally Neck supple, no JVD and no carotid bruits Resp normal respiratory effort, normal air movement and clear to auscultation bilaterally Cardio regular rate and regular rhythm GI normal to inspection, nondistended, normoactive bowel sounds, non-tender and non-distended Extremity normal capillary refill General Extremity: Negative for edema Skin no rashes or lesions noted General Skin Exam: no breakdown Neuro Neuro Narrative: Left hemiparesis, left paresthesia. Speech: speech abnormal Details: Positive for slurred (Mild. ) Psych affect normal Appearance: appropriate Assessment & Plan Assessment/Plan (1) Debility: (2) Bradycardia: (3) Vertigo: (4) Numbness of left hand: (5) Stroke: (6) Hyperlipidemia: (7) Type 2 diabetes mellitus with hyperglycemia: (8) BMI 34.0-34.9,adult: (9) Acute HFrEF (heart failure with reduced ejection fraction): (10) Left carotid artery stenosis: PLAN: Plan 65 year old male with below past medical history hospitalized for right stroke with left hemiparesis, complicated by acute HFrEF, cardiac catheterization negative, complicated by left carotid artery stenosis, admitted to for 3 hours daily rehabilitation, strengthening, prior to discharge home with . Debility - PT/OT/ST. Pain - Tylenol 1000mg q6 prn pain (1-10). Bowel - senna/colace 2 tablets bid, Dulcolax 10mg pr daily prn, MOM 30mL po daily prn. DVT prophylaxis - Hold, on dual antiplatelet therapy. Left carotid artery stenosis - 70%, recommend outpatient follow up with PCP/Vascular surgery to consider intervention. Stroke - Aspirin 81mg daily, Plavix 75mg daily thru 10/08/2025. Hyperlipidemia - Atorvastatin 80mg qhs. Acute HFrEF - Entresto 24/26mg bid, Jardiance 10mg daily. Vertigo - Meclizine 50mg daily prn. Diabetes Mellitus II - Metformin XR 500mg daily. Left lower extremity pain - Doppler ultrasound left lower extremity negative dvt, recommend Tylenol prior to therapy. Insomnia - Melatonin 3mg qhs ineffective, increase Melatonin to 10mg qhs.
[2025-09-19 09:11] VITALS: BMI 32.1
[2025-09-19 18:00] VITALS: BP 121/77; PULSE 69; RESP 17; TEMP 36.2; O2SAT 96
[2025-09-19] MEDS: MELATONIN 3 MG TABLET 10 MG PO (21:24)
[2025-09-19 21:47] VITALS: PULSE 68; RESP 16; O2SAT 99
[2025-09-20 05:00] VITALS: BMI 32.1
[2025-09-20 06:00] VITALS: BP 110/79; PULSE 70; RESP 16; TEMP 36.3; O2SAT 94
[2025-09-20] MEDS: metFORMIN (XR) 500 MG Tablet PO (08:32)
[2025-09-20] MEDS: Senna/Docusate Sodium 1 Tablet 2 TABLET PO ×2 (08:32→20:11)
[2025-09-20] MEDS: SACUBITRIL/VALSARTAN 24/26 MG TABLET 1 EACH PO ×2 (08:32→20:12)
[2025-09-20 17:29] VITALS: BP 114/64; PULSE 66; RESP 16; TEMP 36.7; O2SAT 95
[2025-09-20] MEDS: MELATONIN 10 MG TABLET PO (20:11)
[2025-09-21 00:10] VITALS: BMI 32.1
[2025-09-21 06:00] VITALS: BP 116/78; PULSE 64; RESP 16; TEMP 36.2; O2SAT 94; BMI 31.4
[2025-09-21] MEDS: metFORMIN (XR) 500 MG Tablet PO (07:53)
[2025-09-21] MEDS: SACUBITRIL/VALSARTAN 24/26 MG TABLET 1 EACH PO ×2 (10:17→20:44)
[2025-09-21] MEDS: Senna/Docusate Sodium 1 Tablet 2 TABLET PO ×2 (10:17→20:51)
[2025-09-21 15:24] VITALS: RESP 17
[2025-09-21 15:43] VITALS: BMI 31.4
[2025-09-21 17:51] VITALS: BP 120/75; PULSE 72; RESP 17; TEMP 36.3; O2SAT 97
--- NOTE | 2025-09-21 18:29 | PCM.PROGNOTE ---
Subjective Subjective Afebrile VSS -blood pressure over the past 48 hours has ranged from 110/79 to 121/77. The heart rate is ranged from 64-78. Maintaining appropriate oxygen saturation on RA Oral intake - FOOD good FLUIDS good The blood sugar record was reviewed and the blood sugars over the past 48 hours have ranged from 81-1 21. The blood sugar prior to supper for the past 2 days has been 81 and 99. He is currently taking Jardiance 10 mg daily and Glucophage 500 mg once daily. He is on a heart healthy diet and will add carb consistent. Discussed with nursing - no problems that need addressed Reviewed the THERAPY notes Medication list reviewed. Currently taking dual antiplatelet drugs. Plavix can be discontinued on 10/08/2025 which will make 1 month of treatment. Juarez denies cephalgia, vertigo, vision loss, cough, shortness of breath, chest tightness, nausea/vomiting/abdominal pain, dysuria. Has had some calf pain in the Left calf a few times......associates this with therapy. Venous ultrasound was done was negative for DVT. Has numbness in the R side of the body and also the R face. Tells me that he has to think about swallowing to keep things right. If he does not pay attention he has some coughing. He tells me there is a family history of strokes and heart attacks. His younger brother of a stroke. He has been having trouble sleeping. He has been feeling tired from not sleeping and then he has a good night sleeping and then back to not sleeping well. He had a carotid ultrasound done while on rehab and it showed less than 50% stenosis of the right extracranial internal carotid artery and greater than 70% stenosis of the left extracranial internal carotid. Has not seen a PCP in 2 years. Saw someone prior to that because he had protein in his urine, and high BS. HGBA1C was 10.4 and he was taking Glucophage 500 mg BID. Got it down to 5.7 and stopped Glucophage. Hemoglobin A1c at admission to the hospital for stroke was 6.3. He was also taking a medication for high cholesterol but the cholesterol improved and the medication was stopped. 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 He tells me that he lost 50-60 lbs and changed his diet. Has been having some episodes of seeing stars in the left eye only and transient blind spots in the left eye. He has not seen an eye doctor. He has seen stars a few times since admission to rehab. He denies any hx of migraines and he does not get a SMITH with the vision changes. The stars are in the periphery of the Left eye only. I reviewed the EMR including the H&P, all imaging, all lab and records from the previous hospital. Echocardiogram showed left ventricular ejection fraction of 45 to 50% with abnormal wall motion at the apex. He underwent heart catheterization that showed no evidence of an acute ischemic process. Because of the stroke and cardiomyopathy he was started on aspirin 81 mg daily, Lipitor 80 mg nightly, Entresto 24/26 mg twice daily and Jardiance 10 mg daily. Aldactone was to be started as an outpatient. He had been on a beta-isidra but had bradycardia and this was discontinued. He had swelling of the left upper extremity and venous ultrasound was negative for DVT. He was admitted to acute inpatient rehab on 09/07/2025. Objective Data Objective Data Vital Signs: Vital Signs Temp Pulse Resp BP Pulse Ox O2 Del Method 97.4 F L 72 17 120/75 97 Room Air 09/21/25 17:51 09/21/25 17:51 09/21/25 17:51 09/21/25 17:51 09/21/25 17:51 09/21/25 17:51 Oxygen Delivery Method Room Air Weight: 207 lb Body Mass Index (BMI) 31.4 Intake & Output: Intake and Output for Last 24 Hours 09/19/25 09/20/25 09/21/25 23:59 23:59 23:59 Intake Total 1560 / 1560 1500 / 1500 840 / 840 Output Total 2325 / 2325 750 / 750 1300 / 1300 Balance -765 / -765 750 / 750 -460 / -460 Lab / Micro Data 09/08/25 06:05 09/08/25 06:05 Labs: Laboratory Results - last 24 hr 09/21/25 06:10: POC Glucose 113 H 09/21/25 16:28: POC Glucose 105 Physical Exam Const alert, oriented x3, no apparent distress and well nourished Constitutional Narrative: Sitting in the recliner at the bedside. General Appearance: cooperative Resp normal respiratory effort, normal air movement and clear to auscultation bilaterally Effort and Inspection: Negative for tachypneic Cardio regular rate, regular rhythm and no gallops GI normal to inspection, nondistended, normoactive bowel sounds, soft to palpation and non-tender Extremity no calf tenderness General Extremity: Negative for edema Skin Rashes: no rashes Neuro Neuro Narrative: Tongue protrudes on the midline. Pupils are equal round and reactive to light. No significant facial asymmetry. He has numbness in the left face. Good shoulder shrug on the left. He is right-handed. He has no drift with the left upper extremity but is weaker on the left than the right. There is some swelling of the right hand but venous ultrasound was negative. This is most likely due to decreased function/use of the left upper extremity due to the recent stroke. He has numbness of the left arm and also some numbness in the left chest. He also has numbness in the left lower extremity. There is no drift with the left lower extremity but he is definitely weaker on the left side. He has good plantarflexion and dorsiflexion of the left foot. No ataxia. No extinction. No visual field cuts. No aphasia. Psych affect normal Assessment & Plan Assessment/Plan (1) Debility: (2) Stroke: QUALIFIERS: CVA mechanism: unspecified Qualified Code(s): I63.9 - Cerebral infarction, unspecified (3) Arteriosclerotic cerebrovascular disease: (4) Left-sided extracranial carotid artery stenosis: (5) Left hemiparesis: (6) Paresthesias in left hand: (7) Left leg paresthesias: (8) Arm paresthesia, left: (9) Chronic HFrEF (heart failure with reduced ejection fraction): (10) Hyperlipidemia: QUALIFIERS: Hyperlipidemia type: unspecified Qualified Code(s): E78.5 - Hyperlipidemia, unspecified (11) Type 2 diabetes mellitus with hyperglycemia: QUALIFIERS: Diabetes mellitus senior living insulin use: without senior living use Qualified Code(s): E11.65 - Type 2 diabetes mellitus with hyperglycemia (12) Abnormal LFTs: (13) BMI 34.0-34.9,adult: PLAN: Plan 1. Continue therapy 2. Hold metformin but continue to check the blood sugars AC and at bedtime. Will continue Jardiance 10 mg daily. 3. Start trazodone 100 mg p.o. nightly for insomnia 4. Needs a lot of teaching about goals of treatment, how to prevent additional strokes going forward and the importance of REGULAR physician follow up. 5. Will need to follow-up with Dr. Cuellar from vascular surgery postdischarge to be evaluated for left carotid stenosis. This stroke was on the R side of the brain but with severe arteriosclerosis of the L carotid (>70% stenosis) he is at risk for a L cerebral CVA. 6. CBC, CMP and lipid panel on Wednesday a.m. 7. Since he has had proteinuria in the past will check a urine. I spent 30 minutes with him examining him, answering his questions and educating him about goals of tx and how to prevent additional strokes going forward. Charges/Coding Visit Charges Inpatient E&M: 30173 Subs Hosp L2
[2025-09-21 22:06] VITALS: BMI 31.4
[2025-09-22 00:29] LABS: Mucous, Urine 0 SEEN /hpf (<or=2+); Red Blood Cells-Urine 0 SEEN /hpf (0-5)
[2025-09-22 00:31] LABS: Color, Urine Straw (Yellow); Glucose, Dipstick 1000 mg/dl (Normal); Ketone-Dipstick Negative (Negative); Leukocyte Esterase-Dipstick Negative /ul (Negative); Nitrite-Dipstick Negative (Negative); Occult Blood-Urine Negative /ul (Negative); Protein-Dipstick Negative (Negative); Specific Gravity, Urine 1.015 (1.002-1.030); Urine Bilirubin Dipstick Negative (Negative)
[2025-09-22 00:52] LABS: Squamous Epithelial Cells - UA 0-5 SEEN /hpf (0-5)
[2025-09-22 06:00] VITALS: BP 105/72; PULSE 66; RESP 16; TEMP 36.6; O2SAT 94
[2025-09-22] MEDS: Senna/Docusate Sodium 1 Tablet 2 TABLET PO ×2 (09:24→20:47)
[2025-09-22] MEDS: SACUBITRIL/VALSARTAN 24/26 MG TABLET 1 EACH PO ×2 (09:24→20:46)
[2025-09-22 09:29] VITALS: BP 115/64; PULSE 63
[2025-09-22 10:12] VITALS: BMI 31.4
[2025-09-22 17:53] VITALS: BP 136/74; PULSE 69; RESP 18; TEMP 36.3; O2SAT 93
[2025-09-23 05:00] VITALS: BMI 31.4
[2025-09-23 06:30] VITALS: BP 120/73; PULSE 67; RESP 16; TEMP 36.8; O2SAT 95
[2025-09-23] MEDS: Senna/Docusate Sodium 1 Tablet 2 TABLET PO ×2 (08:02→20:38)
[2025-09-23] MEDS: SACUBITRIL/VALSARTAN 24/26 MG TABLET 1 EACH PO ×2 (08:03→20:37)
[2025-09-23 11:57] VITALS: BMI 31.4
[2025-09-23 17:15] VITALS: BP 111/72; PULSE 68; RESP 16; TEMP 36.6; O2SAT 95
[2025-09-23 22:35] VITALS: BMI 31.4
[2025-09-24 05:22] VITALS: BP 120/71; PULSE 65; RESP 17; TEMP 36.7; O2SAT 94
[2025-09-24] MEDS: Senna/Docusate Sodium 1 Tablet 2 TABLET PO ×2 (07:37→21:15)
[2025-09-24] MEDS: SACUBITRIL/VALSARTAN 24/26 MG TABLET 1 EACH PO ×2 (07:37→21:16)
[2025-09-24 08:29] LABS: Hematocrit 45.9 % (40-54); Hemoglobin 15.5 g/dL (13.0-16.5); Mean Corp Hgb Conc 33.8 g/dL (32-36); Mean Corpuscular Volume 86.3 fL (80-94); Mean Platelet Vol. 9.7 fl (6.2-12.0); Platelet Count 188 K/mm3 (150-450); RBC Distribution Width CV 12.6 % (11.6-14.6); RBC Distribution Width SD 39.5 fl (35.1-43.9); Red Blood Count 5.32 M/mm3 (4.6-6.2); White Blood Count 6.3 K/mm3 (4.4-11.0)
[2025-09-24 08:58] LABS: AST(SGOT) 24 U/L (<=37); Alanine Aminotransfer ALT/SGPT 40 U/L (<=46); Albumin, Serum 4.2 g/dL (3.4-4.8); Alkaline Phosphatase 66 U/L (40-129); Anion Gap 11 (5-15); BUN 16 mg/dL (4-19); BUN/Creat Ratio 20.0 RATIO (10-20); Calcium,Total 9.4 mg/dL (7.6-11.0); Carbon Dioxide 23.4 mmol/L (21.0-32.0); Chloride 106 mmol/L (98-108); Cholesterol 88 mg/dL (<=200); Estimated Creatinine Clearance 101.08 ml/min (50-250); Globulin 2.4 g/dL (2.2-4.2); Glucose 182 mg/dL (70-99); Low Density Lipoprotein Calc. 42 mg/dL; Potassium 4.3 mmol/L (3.3-5.1); Triglycerides 61 mg/dL; Very Low Density Lipoprotein 12 mg/dL (5-40); cholesterol:hdl ratio screen 2.76
--- NOTE | 2025-09-24 09:52 | PCM.PROGNOTE ---
Subjective Subjective Juarez was seen on team rounds today. His participated by phone. She was able to tell me that he used to snore loudly however he lost approximately 60 pounds and snoring is much less. She has never heard him stop breathing. He denies restless leg. Neck circumference is 44 cm. Afebrile VSS -blood pressure is within goal. Heart rate is within normal limits. Maintaining appropriate oxygen saturation on RA Oral intake - FOOD good FLUIDS has been in negative fluid balance over the weekend. The blood sugar record was reviewed. Blood sugars are very well-controlled with no hypoglycemia. He is currently taking Jardiance 10 mg daily and metformin 500 mg daily. Discussed with nursing - no problems that need addressed. Slept well last night after 100 mg of Trazodone. Reviewed the THERAPY notes Medication list reviewed. All labs from this morning was personally reviewed. CBC is normal. Sodium is 140 and the potassium is 4.3. BUN is 16 (down from 27 on 09/08/2025) and the creatinine is 0.81 which is down from 0.87 on 09/08. After the first dose of Trazodone he felt hung over in the AM. He did not take the medication Wednesday night but, he did not sleep well. He took the Trazodone Last night and slept well per nursing........did not feel sleepy this AM and tells me that he felt very alert. Denies cephalgia, lightheadedness, palpitations, chest pain, shortness of breath, cough, nausea/vomiting/abdominal pain, dysuria and calf tenderness. He is aware that his heart is weak. He asked if this was due to the CVA. I told him is is more likely due to uncontrolled HTN in the past. He was told that he has some CAD but, mild and no need for any intervention at the time of the cath recently. He had 40% stenosis of the Mid LAD and and proximal circ. He had 50% stenosis of the proximal RCA. R side filling pressures were normal. EF 45-50%. HGBA1C was 6.3 on no meds at the previous hospital. LDL was 135 on no medications. TTE - global hypokinesis of the LV, normal RV, abnormal apex, estimated RVSP was 38.......on R heart cath it was 26. Objective Data Objective Data Vital Signs: Vital Signs Temp Pulse Resp BP Pulse Ox O2 Del Method 98.0 F 65 17 120/71 94 Room Air 09/24/25 05:22 09/24/25 05:22 09/24/25 05:22 09/24/25 05:22 09/24/25 05:22 09/24/25 05:22 Oxygen Delivery Method Room Air Weight: 207 lb Body Mass Index (BMI) 31.4 Intake & Output: Intake and Output for Last 24 Hours 09/22/25 09/23/25 09/24/25 23:59 23:59 23:59 Intake Total 1170 / 1170 1080 / 1080 50 / 50 Output Total 1425 / 1425 1525 / 1525 600 / 600 Balance -255 / -255 -445 / -445 -550 / -550 Lab / Micro Data 09/24/25 08:15 09/24/25 08:15 Labs: Laboratory Results - last 24 hr 09/23/25 15:53: POC Glucose 147 H 09/24/25 06:23: POC Glucose 112 H 09/24/25 08:15: WBC 6.3, RBC 5.32, Hgb 15.5, Hct 45.9, MCV 86.3, MCH 29.1, MCHC 33.8, RDW Std Deviation 39.5, RDW Coeff of Anil 12.6, Plt Count 188, MPV 9.7, Sodium 140, Potassium 4.3, Chloride 106, Carbon Dioxide 23.4, Anion Gap 11, BUN 16, Creatinine 0.81, Estim Creat Clear Calc 101.08, Est GFR (MDRD) Non-Af 98, BUN/Creatinine Ratio 20.0, Glucose 182 H, Calcium 9.4, Total Bilirubin 0.82, AST 24, ALT 40, Alkaline Phosphatase 66, Total Protein 6.6, Albumin 4.2, Globulin 2.4, Albumin/Globulin Ratio 1.7, Triglycerides 61, Cholesterol 88, LDL Cholesterol, Calc 42, VLDL Cholesterol 12, HDL Cholesterol 32 L, Cholesterol/HDL Ratio 2.76 Physical Exam Const alert, oriented x3 and no apparent distress General Appearance: cooperative Resp normal respiratory effort, normal air movement and clear to auscultation bilaterally Effort and Inspection: Negative for tachypneic Cardio regular rate, regular rhythm and no gallops GI normal to inspection, nondistended, normoactive bowel sounds and non-tender Extremity no calf tenderness General Extremity: Negative for edema Assessment & Plan Assessment/Plan (1) Debility: (2) Stroke: QUALIFIERS: CVA mechanism: unspecified Qualified Code(s): I63.9 - Cerebral infarction, unspecified (3) Arteriosclerotic cerebrovascular disease: (4) Left-sided extracranial carotid artery stenosis: (5) Left hemiparesis: (6) Left leg paresthesias: (7) Arm paresthesia, left: (8) Chronic HFrEF (heart failure with reduced ejection fraction): (9) Hyperlipidemia: QUALIFIERS: Hyperlipidemia type: unspecified Qualified Code(s): E78.5 - Hyperlipidemia, unspecified (10) Type 2 diabetes mellitus with hyperglycemia: QUALIFIERS: Diabetes mellitus senior living insulin use: without long winder tender use Qualified Code(s): E11.65 - Type 2 diabetes mellitus with hyperglycemia (11) Abnormal LFTs: (12) BMI 34.0-34.9,adult: PLAN: Plan 1. Continue therapy 2. No changes to the drug regimen today 3. Blood sugars are under excellent control with no hypoglycemia so we will change the Accu-Cheks to as needed. Continue carb consistent, heart healthy diet. 4. Overnight trending pulse ox due to stroke, obesity, HTN, male> 50 YOA 5. consider 30day event monitor at [place] from rehab - Juarez would like to follow up with [facility] and Dr. Kitchen at [place] from re[place]. If the overnight trending pulse ox is unremarkable will order an event monitor at [place]. 6. Needs a Lipid profile and a liver panel in 4-6 weeks post [place]. 7. We discussed the goals of tx with him today. Hemoglobin A1c 7 or less, LDL 70 or less and blood pressure less than 130/80. 8. I strongly recommended regular follow-up with a PCP. His has been trying to get him to comply with this for some time. We discussed that the coronary artery disease, cardiomyopathy and stroke are more likely than not due to inadequately treated hypertension, diabetes mellitus type 2 and hyperlipidemia. 1. Do you snore loudly? Yes 2. Do you often feel tired, fatigued or sleepy during the day? No 3. Has anyone ever observed you stop breathing during sleep? No 4. Do you have (or are you being treated for) HTN? Yes BMI 32.5 AGE 65 Neck circumference 44 cm Gender male Total 5 This places him at high risk for obstructive sleep apnea. Charges/Coding Visit Charges Inpatient E&M: 36526 Subs Hosp L2
[2025-09-24 11:20] VITALS: BMI 31.4
[2025-09-24 11:39] VITALS: BMI 32.4
--- NOTE | 2025-09-24 13:02 | CASEMGMT ---
Social Work IDT met with patient at bedside and participated via conference call for Team meeting. Discussed patient's progress in PT/OT/SN/MD. [facility] [place] [facility] and continued stay with each review. Pt is making progress with the goal to return home. works part-time. SW inquired about HHC preference. Pt/ has not chosen one yet but will review and notify this worker. SW will continue to follow for DC planning. Will ReTeam weekly. Loren Last MAIL CARRIER THREAD GRINDER TOOL
[2025-09-24 18:00] VITALS: BP 127/71; PULSE 58; RESP 17; TEMP 36.8; O2SAT 97
[2025-09-24 21:30] VITALS: PULSE 61; O2SAT 95
[2025-09-24 21:36] VITALS: PULSE 64; RESP 16; O2SAT 95
[2025-09-25 05:00] VITALS: BMI 32.4
[2025-09-25 06:00] VITALS: BP 116/78; PULSE 73; RESP 14; TEMP 36.4; O2SAT 92
--- NOTE | 2025-09-25 06:53 | NURSING ---
Patient reported increased swelling to BLE last evening, he believes it was due to wearing his MIRNA hose too long. This nurse educated patient that MIRNA hose usually help reduce swelling. Patient discussed with this nurse he would like to take a break from them today despite education. Continue to educate patient on importance of use of MIRNA hose.
[2025-09-25] MEDS: SACUBITRIL/VALSARTAN 24/26 MG TABLET 1 EACH PO ×2 (07:42→20:53)
[2025-09-25] MEDS: Senna/Docusate Sodium 1 Tablet 2 TABLET PO ×2 (07:46→20:51)
[2025-09-25 13:59] VITALS: BMI 32.4
--- NOTE | 2025-09-25 14:01 | PCM.PROGNOTE ---
Subjective Subjective Afebrile Vital signs are stable and the blood pressure is within goal. Heart rate is within normal limits. I reviewed the overnight trending pulse ox. There were no desaturations greater than 60 seconds. The oxygen saturation was 89% or less for a total of 11 minutes and 2 seconds. His STOP-BANG score is 5 which is consistent with high risk for obstructive sleep apnea. Will recommend a formal sleep study going forward. No complaints today. Denies lightheadedness, cephalgia, chest pain, shortness of breath, dysuria and calf pain. Objective Data Objective Data Vital Signs: Vital Signs Temp Pulse Resp BP Pulse Ox O2 Del Method O2 Flow Rate 97.6 F L 73 14 116/78 92 Room Air 0 09/25/25 06:00 09/25/25 06:00 09/25/25 06:00 09/25/25 06:00 09/25/25 06:00 09/25/25 08:10 09/24/25 21:30 FiO2 21 09/24/25 21:30 Oxygen Flow Rate (L/min) 0 Oxygen Delivery Method Room Air Weight: 213 lb 10.047 oz Body Mass Index (BMI) 32.4 Intake & Output: Intake and Output for Last 24 Hours 09/23/25 09/24/25 09/25/25 23:59 23:59 23:59 Intake Total 1080 / 1080 1870 / 1870 1320 / 1320 Output Total 1525 / 1525 1425 / 1650 1650 / 1650 Balance -445 / -445 445 / 220 -330 / -330 Lab / Micro Data 09/24/25 08:15 09/24/25 08:15 Labs: Laboratory Results - last 24 hr 09/25/25 06:16: POC Glucose 108 H Physical Exam Const alert, oriented x3 and no apparent distress General Appearance: cooperative Resp clear to auscultation bilaterally Cardio regular rate, regular rhythm and no gallops GI normal to inspection, nondistended, normoactive bowel sounds and non-tender Extremity no calf tenderness General Extremity: Negative for edema Assessment & Plan Assessment/Plan (1) Debility: (2) Stroke: QUALIFIERS: CVA mechanism: unspecified Qualified Code(s): I63.9 - Cerebral infarction, unspecified (3) Arteriosclerotic cerebrovascular disease: (4) Left-sided extracranial carotid artery stenosis: (5) Left hemiparesis: (6) Left leg paresthesias: (7) Arm paresthesia, left: (8) Chronic HFrEF (heart failure with reduced ejection fraction): (9) Hyperlipidemia: QUALIFIERS: Hyperlipidemia type: unspecified Qualified Code(s): E78.5 - Hyperlipidemia, unspecified (10) Type 2 diabetes mellitus with hyperglycemia: QUALIFIERS: Diabetes mellitus moth exterminator insulin use: without moth exterminator use Qualified Code(s): E11.65 - Type 2 diabetes mellitus with hyperglycemia (11) Abnormal LFTs: (12) BMI 34.0-34.9,adult: (13) Sleep related hypoxia: PLAN: Plan 1. Continue therapy 2. 30-day event monitor at discharge 3. Recommend a formal sleep study going forward. 4. No changes to the drug regimen today. Charges/Coding Visit Charges Inpatient E&M: 29942 Subs Hosp L1
[2025-09-25 20:00] VITALS: BP 119/73; PULSE 59; RESP 17; TEMP 37; O2SAT 96
[2025-09-25 20:57] VITALS: BMI 32.4
[2025-09-25 20:58] VITALS: RESP 17; O2SAT 96
[2025-09-26 06:00] VITALS: BP 115/68; PULSE 65; RESP 17; TEMP 36.4; O2SAT 98
[2025-09-26] MEDS: Senna/Docusate Sodium 1 Tablet 2 TABLET PO ×2 (08:23→20:40)
[2025-09-26] MEDS: SACUBITRIL/VALSARTAN 24/26 MG TABLET 1 EACH PO ×2 (08:24→20:39)
[2025-09-26 17:00] VITALS: BMI 32.4
[2025-09-26 18:00] VITALS: BP 107/72; PULSE 64; RESP 16; TEMP 36.1; O2SAT 96
[2025-09-26 20:19] VITALS: BMI 32.4
[2025-09-26 20:25] VITALS: RESP 16
[2025-09-27 06:00] VITALS: BP 125/76; PULSE 69; RESP 16; TEMP 36.6; O2SAT 94
[2025-09-27] MEDS: Senna/Docusate Sodium 1 Tablet 2 TABLET PO ×2 (07:48→21:00)
[2025-09-27] MEDS: SACUBITRIL/VALSARTAN 24/26 MG TABLET 1 EACH PO ×2 (07:49→21:00)
--- NOTE | 2025-09-27 12:16 | PCM.PROGNOTE ---
Subjective Subjective Afebrile VSS -blood pressure remains within goal. Heart rate over the past 24 hours has ranged from 64-69. Maintaining appropriate oxygen saturation on RA Oral intake - FOOD good FLUIDS good Discussed with nursing - no problems that need addressed Reviewed the THERAPY notes -he ambulated up to 155 feet today with a a quad cane with reciprocal stepping. He is unsteady with pivoting using the quad cane and is still CGA with the quad cane. He agreed to use a front wheel walker when ambulating in his room and he was made MOD I by therapy today. He is currently supervision/set up for grooming, bathing, upper body dressing and lower body dressing. He is standby assist with toileting, toilet transfer and tub/shower transfer. Medication list reviewed. Objective Data Objective Data Vital Signs: Vital Signs Temp Pulse Resp BP Pulse Ox O2 Del Method O2 Flow Rate 97.8 F 69 16 125/76 H 94 Room Air 0 09/27/25 06:00 09/27/25 06:00 09/27/25 06:00 09/27/25 06:00 09/27/25 06:00 09/27/25 06:00 09/24/25 21:30 FiO2 21 09/24/25 21:30 Oxygen Flow Rate (L/min) 0 Oxygen Delivery Method Room Air Weight: 213 lb 10.047 oz Body Mass Index (BMI) 32.4 Intake & Output: Intake and Output for Last 24 Hours 09/25/25 09/26/25 09/27/25 23:59 23:59 23:59 Intake Total 2530 / 2530 3020 / 3020 790 / 790 Output Total 2550 / 2550 3150 / 3150 1300 / 1300 Balance -20 / -20 -130 / -130 -510 / -510 Lab / Micro Data 09/24/25 08:15 09/24/25 08:15 Physical Exam Const alert, oriented x3 and no apparent distress General Appearance: cooperative Resp clear to auscultation bilaterally Cardio regular rate, regular rhythm and no gallops GI normal to inspection, nondistended, normoactive bowel sounds and non-tender Extremity no calf tenderness General Extremity: Negative for edema Psych cooperative and affect normal Psych Narrative: talkative, pleasant, making good eye contact with me when we are talking. Appearance: appropriate Attitude: No agitated Activity / Motor Behavior: Negative for restless Assessment & Plan Assessment/Plan (1) Debility: (2) Stroke: QUALIFIERS: CVA mechanism: unspecified Qualified Code(s): I63.9 - Cerebral infarction, unspecified (3) Arteriosclerotic cerebrovascular disease: (4) Left-sided extracranial carotid artery stenosis: (5) Left hemiparesis: (6) Left leg paresthesias: (7) Arm paresthesia, left: (8) Chronic HFrEF (heart failure with reduced ejection fraction): (9) Hyperlipidemia: QUALIFIERS: Hyperlipidemia type: unspecified Qualified Code(s): E78.5 - Hyperlipidemia, unspecified (10) Type 2 diabetes mellitus with hyperglycemia: QUALIFIERS: Diabetes mellitus regional intermodal truck driver insulin use: without regional intermodal truck driver use Qualified Code(s): E11.65 - Type 2 diabetes mellitus with hyperglycemia (11) Abnormal LFTs: (12) Coronary artery disease: QUALIFIERS: Coronary Disease-Associated Artery/Lesion type: [place]into artery [place] vs. transplanted heart: minto heart Associated angina: without angina Qualified Code(s): I25.10 - Atherosclerotic heart disease of minto coronary artery without angina pectoris PLAN: Multivessel disease with 40% stenosis of the mid LAD and proximal circumflex and 50% stenosis of the RCA. No intervention needed at this time. Continue medical management. PLAN: Plan 1. Continue therapy 2. Making progress but, still requiring a FWW for ambulation for safety. 3. Decrease the Trazodone to 50 mg at HS due to c/o feeling hung over and slow in the AM. 4. The patient is unsafe to use a cane and requires a walker for ambulation in the home and the community. Charges/Coding Visit Charges Inpatient E&M: 93166 Subs Hosp L1
[2025-09-27 14:55] VITALS: BMI 32.4
[2025-09-27 18:00] VITALS: BP 134/79; PULSE 63; RESP 16; TEMP 36.2; O2SAT 96
[2025-09-27 21:00] VITALS: BP 128/76; PULSE 66; RESP 18; O2SAT 94
[2025-09-27 22:00] VITALS: RESP 18; O2SAT 94
[2025-09-28 01:28] VITALS: BMI 32.4
[2025-09-28 07:00] VITALS: BP 118/64; PULSE 66; RESP 18; TEMP 36.1; O2SAT 96; BMI 31.8
[2025-09-28] MEDS: SACUBITRIL/VALSARTAN 24/26 MG TABLET 1 EACH PO ×2 (09:05→22:09)
[2025-09-28 16:33] VITALS: BMI 31.8
[2025-09-28 17:18] VITALS: BP 116/83; PULSE 71; RESP 18; TEMP 36.4; O2SAT 94
[2025-09-28 22:00] VITALS: PULSE 71; RESP 18; O2SAT 94; BMI 31.8
[2025-09-28] MEDS: MELATONIN 3 MG TABLET PO (22:09)
[2025-09-29 05:59] VITALS: BP 124/75; PULSE 67; RESP 18; TEMP 36.6; O2SAT 98
[2025-09-29] MEDS: SACUBITRIL/VALSARTAN 24/26 MG TABLET 1 EACH PO ×2 (08:13→20:13)
[2025-09-29 17:48] VITALS: BP 117/79; PULSE 87; RESP 18; TEMP 36.6; O2SAT 94
[2025-09-29] MEDS: MELATONIN 3 MG TABLET PO (20:13)
[2025-09-30 05:22] VITALS: BP 104/68; PULSE 72; RESP 18; TEMP 36.8; O2SAT 94
[2025-09-30] MEDS: SACUBITRIL/VALSARTAN 24/26 MG TABLET 1 EACH PO ×2 (08:07→21:04)
[2025-09-30 08:08] VITALS: BP 110/72; PULSE 77
[2025-09-30 11:31] VITALS: BMI 31.8
[2025-09-30 17:49] VITALS: BP 108/76; PULSE 67; RESP 16; TEMP 35.8; O2SAT 95
[2025-09-30] MEDS: MELATONIN 3 MG TABLET PO (21:04)
[2025-09-30 21:17] VITALS: BMI 31.8
[2025-10-01 06:05] VITALS: BP 118/70; PULSE 62; RESP 17; TEMP 36.3; O2SAT 97
[2025-10-01] MEDS: SACUBITRIL/VALSARTAN 24/26 MG TABLET 1 EACH PO ×2 (07:30→19:54)
[2025-10-01] MEDS: Senna/Docusate Sodium 1 Tablet 2 TABLET PO (07:31)
[2025-10-01 09:17] VITALS: BMI 31.8
--- NOTE | 2025-10-01 14:15 | CASEMGMT ---
Team meet held with pt present and pt's on speaker phone. PT/OT/Physician provided updates on pts current status and pt is making good progress with therapy. JOSUE spoke with pt and regarding setting a discharge date and pt and choosing tomorrow 10/02. Team is agreeable to this plan. Continued PT is recommended and SW discussed options of home health and outpt PT and after discussion between and pt, Pt agreeable to outpt therapy and [facility] is provider of choice. Pt's states she can transport to therapy on Tuesdays and . Pt will need a wheeled walker and pt states he does have a quad cane. is able to transport pt home and denies any other dc needs. Order for outpt PT faxed to [facility] and JOSUE requested [facility] reach out to pt's to schedule an appointment. Referral sent to [facility] via [facility] and JOSUE requested walker be delivered to pt room prior to 1pm tomorrow. No further dc needs. Discharge Date: 10/02 Discharge Disposition: Home with , outpt PT at [facility]
[2025-10-01 18:00] VITALS: BP 105/67; PULSE 57; RESP 18; TEMP 36.6; O2SAT 93
--- NOTE | 2025-10-01 18:16 | PCM.PROGNOTE ---
Subjective Subjective Juarez was seen on team rounds today. His participated by phone. Afebrile VSS -blood pressure is within goal and he has no lightheadedness. Heart rate is within normal limits. Maintaining appropriate oxygen saturation on RA Oral intake - FOOD good FLUIDS good Discussed with nursing - no problems that need addressed Reviewed the THERAPY notes Medication list reviewed. Denies cephalgia, lightheadedness, chest pain, shortness of breath, palpitations, nausea/vomiting/abdominal pain, dysuria and calf tenderness. Objective Data Objective Data Vital Signs: Vital Signs Temp Pulse Resp BP Pulse Ox O2 Del Method O2 Flow Rate 97.3 F L 62 17 118/70 97 Room Air 0 10/01/25 06:05 10/01/25 06:05 10/01/25 06:05 10/01/25 06:05 10/01/25 06:05 10/01/25 06:05 09/24/25 21:30 FiO2 21 09/24/25 21:30 Oxygen Flow Rate (L/min) 0 Oxygen Delivery Method Room Air Weight: 209 lb 7.026 oz Body Mass Index (BMI) 31.8 Intake & Output: Intake and Output for Last 24 Hours 09/29/25 09/30/25 10/01/25 23:59 22:59 23:59 Intake Total 630 / 630 1500 / 1500 1200 / 1200 Output Total 2365 / 2365 1800 / 1800 1300 / 1300 Balance -1735 / -1735 -300 / -300 -100 / -100 Lab / Micro Data 09/24/25 08:15 09/24/25 08:15 Physical Exam Const alert, oriented x3 and no apparent distress General Appearance: cooperative Resp clear to auscultation bilaterally Cardio regular rate, regular rhythm and no gallops GI normal to inspection, nondistended, normoactive bowel sounds and non-tender Extremity no calf tenderness General Extremity: Negative for edema Psych cooperative and affect normal Psych Narrative: talkative, pleasant, making good eye contact with me when we are talking. Appearance: appropriate Attitude: No agitated Activity / Motor Behavior: Negative for restless Assessment & Plan Assessment/Plan (1) Debility: (2) Stroke: QUALIFIERS: CVA mechanism: unspecified Qualified Code(s): I63.9 - Cerebral infarction, unspecified (3) Arteriosclerotic cerebrovascular disease: (4) Left-sided extracranial carotid artery stenosis: (5) Left hemiparesis: (6) Left leg paresthesias: (7) Arm paresthesia, left: (8) Chronic HFrEF (heart failure with reduced ejection fraction): (9) Hyperlipidemia: QUALIFIERS: Hyperlipidemia type: unspecified Qualified Code(s): E78.5 - Hyperlipidemia, unspecified (10) Type 2 diabetes mellitus with hyperglycemia: QUALIFIERS: Diabetes mellitus ocean transportation intermediary insulin use: without correction use Qualified Code(s): E11.65 - Type 2 diabetes mellitus with hyperglycemia (11) Abnormal LFTs: (12) Coronary artery disease: QUALIFIERS: Coronary Disease-Associated Artery/Lesion type: [place] artery [place] vs. transplanted heart: [place] heart Associated angina: without angina Qualified Code(s): I25.10 - Atherosclerotic heart disease of [place] coronary artery without angina pectoris PLAN: Multivessel disease with 40% stenosis of the mid LAD and proximal circumflex and 50% stenosis of the RCA. No intervention needed at this time. Continue medical management. PLAN: Plan 1. Plan discharge home tomorrow. He will have outpatient therapy at [facility] and his will be able to transport him there. 2. No driving at discharge. 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 He was given a referral to the drivers rehab program at [facility] when he and his therapist feel he is ready to start driving. 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 Charges/Coding Visit Charges Inpatient E&M: 06527 [facility] Hosp L1
[2025-10-01 19:45] VITALS: BMI 31.8
[2025-10-01 19:47] VITALS: O2SAT 97
[2025-10-01 20:45] VITALS: BMI 31.8
[2025-10-02 06:00] VITALS: BP 141/71; PULSE 51; RESP 15; TEMP 36.6; O2SAT 93
[2025-10-02] MEDS: SACUBITRIL/VALSARTAN 24/26 MG TABLET 1 EACH PO (07:46)
--- NOTE | 2025-10-02 08:16 | DCINST_ITS ---
Discharge Instructions
--- NOTE | 2025-10-02 08:16 | PCM.DC ---
Discharge Instructions DC O2, CPAP, BIPAP needs Home O2 Discharge instructions: No Dressing / Incision Discharge Activity: May Not Drive, May Shower and Use Walker (Or a quad cane) Weight Bearing Status: Full weight bearing Keep extremity elevated above heart level: Legs Dressing / Incision Call your doctor if you observe: Fever of 101 or Higher, Inability to urinate, Shortness of breath, Dizziness, Fainting spells, Swelling in the ankles, Chest pain, Increased palpitations (irregular heartbeat), Calf discomfort, Uncontrolled pain and - (STROKE symptoms: facial droop, slurred speech, inability to get words out, weakness on 1 side of the body and not the other, numbness on 1 side of the body and not the other, inability to maintain your balance sitting or standing, vertigo. ) Follow Up Care Please Follow Up With: Mary Jane Eldridge MD When: Appts are listed later in this document. You will also be following up with Meghann Cuevas from neurology, [facility] and Dr. Gopi Cuellar from vascular surgery. I also recommend you follow up with an eye doctor for the transient blind spots in the left eye and the stars you see at times. Test Results: Test results from this visit will be discussed in further detail at your follow-up appointment, if applicable. Pending Tests Upon Discharge: none Discharge Plan Admission Admit Date/Time: 09/07/25 15:00 Primary Reason for Your Visit: Post stroke debility. Attending Provider: Wendy Shaw Primary Care Provider: Mary Jane Eldridge Consulting Providers: Chano Bradley Chi Instructions Patient Instructions: Carotid Artery Problems: Stroke, Discharge Instructions for Stroke Additional Instructions / Restrictions: 1. You had a stroke on the R side of the brain. You have arteriosclerosis of the blood vessels in the brain. You also have severe narrowing of the LEFT carotid artery in the neck. The left carotid artery has greater than 70% stenosis...... stenosis means narrowing of the artery. This degree of stenosis puts you at significantly increased risk for having a stroke on the left side of the brain. We are making you an appointment to follow-up with a vascular surgeon to discuss procedures to open this artery. The surgeon's name is Dr. Gopi Cuellar and he works at [facility]. 2. Your heart does not squeeze normally. Normally when the heart squeezes it squeezes out 55 to 65% of the blood. Your heart only squeezes at 45 to 50% of the blood and this is called your ejection fraction. You had a cardiac catheterization that identified arterial sclerosis/stenosis in all 3 major arteries supplying the heart. You had 40% stenosis of the left anterior descending artery, 40% stenosis of the proximal circumflex artery and 50% stenosis of the right coronary artery. There is no indication for any intervention such as a stent at this time but you must control your cardiac risk factors to prevent the disease from worsening. This means keeping your blood pressure less than 130/80, keeping the hemoglobin A1c under 7 (preferably under 6.5%) and keeping the LDL (bad cholesterol) 70 or less. You should ALWAYS know these numbers. Your HGBA1C at admission to the hospital was 6.3 and that was on no medication. You are taking a medication called Jardiance that helps the heart to perform better when it is squeezing. This drug can also lower blood sugar. Your blood sugars have been good on Jardiance alone so I am not going to continue the Glucophage that was started a the previous hospital. Do NOT gain any weight and watch your carbohydrate intake. Your doctor will want ot repeat the HGBA1C in about 3 months. 3. You can not drive. We have made referral to a drivers rehab program at [facility] in [place]. When you are ready they will test you to make sure that you are safe to drive. 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 4. You will need to follow up with a seismic observer for the coronary artery disease and the cardiomyopathy (he reduced ejection fraction of the heart). 5. You have been referred to a neurologist to follow-up with you for the stroke. 6. Your BP is well controlled on the current medications. 7. You will need to have a lipid panel and a liver panel in 6 weeks. This is to check the cholesterol on the Atorvastatin (also called Lipitor) and the liver tests.......Lipitor can cause the liver enzymes to increase. 7. If you or your family have any questions after you leave rehab please do not hesitate to call me. Please do not ignore the recommendations I have made. You are at high risk for a stroke on the left side of the brain. There is surgery available to open up the left carotid artery to decrease the risk of stroke. OFFICE: [phone] CELL: [phone] NURSES STATION ON REHAB: [phone] Discharge Orders/Prescriptions Prescriptions: Continued aspirin 81 mg tablet,chewable 1 tab PO DAILY atorvastatin [Lipitor] 80 mg tablet 80 mg PO QHS Qty: 30 0RF clopidogrel [Plavix] 75 mg tablet 75 mg PO DAILY Qty: 7 0RF Rx Instructions: you can discontinue after last dose. Jardiance 10 mg tablet 10 mg PO DAILY Qty: 30 0RF sacubitril-valsartan [Entresto] 24-26 mg tablet 1 tab PO BID Qty: 60 0RF Discontinued meclizine 25 mg tablet 50 mg PO DAILY PRN (Reason: dizziness or vertigo) metformin [Glucophage XR] 500 mg tablet extended release 24 hr 500 mg PO DAILY Other Ambulatory Orders: 30 Day Event Recorder Preventi (Routine) Timeframe: 1 Day Facility: [facility] - Location: Cardiovascular Services Ordered By: Dr. Wendy Shaw Referrals / Follow Up: [facility] [Provider Group] Gopi Cuellar MD [Med Staff - Active Staff, Vascular Surgery] - 10/24/25 3:00 pm Mary Jane Eldridge MD [Primary Care Provider, Medical] - 10/10/25 9:45 am Referral Note: appt time is at 10am but arrive 15 minutes early Meghann Cuevas NP-C [Med Staff - Adv Practice Prof, Neurology] - 10/17/25 9:00 am Disposition Disposition (needs filled in before D/C Order can be placed): Home, Self Care
[2025-10-02 09:10] VITALS: BP 114/80; PULSE 72; RESP 17; TEMP 36.4; O2SAT 96
--- NOTE | 2025-10-02 09:21 | EX.DISCHREH ---
Providers Date of Admission: 09/07/25 Date of Discharge: 10/02/25 Primary Care Physician: Dr. Mary Jane Eldridge MD None Reason For Visit: STROKE Diagnosis Discharge Diagnosis (1) Debility: Status: Acute Code(s): R53.81 - Other malaise (2) Stroke: Status: Acute Code(s): I63.9 - Cerebral infarction, unspecified Qualifiers: CVA mechanism: unspecified Qualified Code(s): I63.9 - Cerebral infarction, unspecified Plan: Right medial medullary ischemic infarct. CTA with mixed large and small vessel cerebrovascular disease. Carotid ultrasound significant for greater than 70% stenosis on the left and less than 50% stenosis on the right. He has been referred to Dr. Gopi Cuellar from vascular surgery to discuss intervention of severe left carotid stenosis. (3) Arteriosclerotic cerebrovascular disease: Status: Chronic Code(s): I67.2 - Cerebral atherosclerosis (4) Left-sided extracranial carotid artery stenosis: Status: Chronic Code(s): I65.22 - Occlusion and stenosis of left carotid artery Plan: Greater than 70% on carotid ultrasound. (5) Left hemiparesis: Status: Acute Code(s): G81.94 - Hemiplegia, unspecified affecting left nondominant side (6) Left leg paresthesias: Status: Acute Code(s): R20.2 - Paresthesia of skin (7) Arm paresthesia, left: Status: Acute Code(s): R20.2 - Paresthesia of skin (8) Chronic HFrEF (heart failure with reduced ejection fraction): Status: Chronic Code(s): I50.22 - Chronic systolic (congestive) heart failure Plan: Ejection fraction on recent cardiac catheterization was 45 to 50%. (9) Hyperlipidemia: Status: Chronic Code(s): E78.5 - Hyperlipidemia, unspecified Qualifiers: Hyperlipidemia type: unspecified Qualified Code(s): E78.5 - Hyperlipidemia, unspecified Plan: Continue atorvastatin 80 mg p.o. nightly. Will need follow-up lipid and liver panels in 4 to 6 weeks. 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 (13) Sleep related hypoxia: Status: Acute Code(s): G47.34 - Idiopathic sleep related nonobstructive alveolar hypoventilation Plan: Overnight trending pulse ox showed the oxygen saturation to be 85 to 89% for 2.13% of the time he was monitored for a total of 11 minutes and 2 seconds. There were no desaturations lasting greater than 60 seconds. (14) Coronary artery disease: Status: Chronic Code(s): I25.10 - Atherosclerotic heart disease of [place] coronary artery without angina pectoris Qualifiers: Associated angina: without angina Coronary Disease-Associated Artery/Lesion type: [place] artery [place] vs. transplanted heart: [place] heart Qualified Code(s): I25.10 - Atherosclerotic heart disease of [place] coronary artery without angina pectoris Plan: Multivessel disease with 40% stenosis of the mid LAD and proximal circumflex and 50% stenosis of the RCA. No intervention needed at this time. Continue medical management. (15) Bradycardia: Status: Resolved Code(s): R00.1 - Bradycardia, unspecified Plan: Resolved with discontinuation of beta-isidra. Plan 1. Discharge home with outpatient physical therapy and occupational therapy at [facility]. will transport him. 2. The patient is unsafe to use a cane and requires a walker for ambulation in the home and the community. His has already purchased a cane that he can use when he is advanced by PT. Needs the walker for community distances. 3. Follow-up has been scheduled with Meghann Cuevas NP from neurology and Dr. Mary Jane Eldridge (PCP). Will also try and schedule appts with Dr. Gopi Cuellar (vascular surgery) and [facility]. 4. Liver and lipid panel in 4-6 weeks. On Atorvastatin 80 mg at HS. 5. blood sugars have been very good on a carb consistent diet and Jardiance 10 mg daily. Glucophage was discontinued during his stay on rehab. Would recheck a hemoglobin A1c in the next couple months and the goal is to have it be 6.5 or less. 6. Recommended he try and lost some weight to help with BS control. 7. He was instructed not to drive. A referral was made to the drivers rehab program at [facility] in [place]. When he and his therapist feel he is ready to drive he will call for an appointment to be tested. 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 Medications at Discharge Home Medications aspirin 81 mg chewable tablet 1 tab PO DAILY heart health 09/07/25 atorvastatin 80 mg tablet (Lipitor) 80 mg PO QHS cholesterol #30 tabs 10/02/25 clopidogrel 75 mg tablet (Plavix) 75 mg PO DAILY DVT prophalaxis #7 tabs 10/02/25 empagliflozin 10 mg tablet (Jardiance) 10 mg PO DAILY glucose #30 tabs 10/02/25 sacubitril 24 mg-valsartan 26 mg tablet (Entresto) 1 tab PO BID CHF #60 tabs 10/02/25 Physical Exam Const alert, oriented x3, no apparent distress and well nourished Constitutional Narrative: Sitting in the recliner at the bedside. General Appearance: cooperative, well kempt and well developed HEENT normocephalic, head/scalp atraumatic and moist oral mucous membranes Eyes PERRL, EOMs intact bilaterally, conjunctivae normal and no scleral icterus Eyes Narrative: No discharge from the eyes Neck supple Chest Chest: symmetrical chest wall rise Resp normal respiratory effort, normal air movement and clear to auscultation bilaterally Effort and Inspection: Negative for tachypneic Cardio regular rate, regular rhythm, no murmurs, no rub and no gallops Cardio Narrative: Occasional premature beat. GI normal to inspection, nondistended, normoactive bowel sounds, soft to palpation and non-tender Extremity no calf tenderness General Extremity: Negative for edema Skin no jaundice Rashes: no rashes Neuro Neuro Narrative: Tongue protrudes on the midline. Pupils are equal round and reactive to light. No significant facial asymmetry. He has minimal numbness in the left face. Good shoulder shrug bilateral. He is right-handed. He has no drift with the left upper extremity but is weaker on the left than the right. There is some swelling of the left hand but venous ultrasound was negative. This is most likely due to decreased function/use of the left upper extremity due to the recent stroke. He has numbness of the left arm and also some numbness in the left chest. He also has numbness in the left lower extremity. There is no drift with the left lower extremity but he is definitely weaker on the left side. He has good plantarflexion and dorsiflexion of the left foot. No ataxia. No extinction. No visual field cuts. No aphasia. Psych cooperative, affect normal and denies suicidal ideation Appearance: grossly normal, appropriate and well kempt Attitude: calm and engaged Activity / Motor Behavior: appropriate eye contact Weight / BMI Weight Weight: 209 lb 7.026 oz Body Mass Index (BMI) 31.8 ABG / Lab / Microbiology Data 09/24/25 08:15 09/24/25 08:15 Indicators for Scoring Admitted with or Primary Diagnosis of CVA/Stroke: Yes Hx of CVA/Stroke: Yes Modified [place] Score MRS Score at time of Evaluation: 2-Slight disability NIHSS NIHSS 1a. Level of Consciousness: 0 - Alert; keenly responsive 1b. LOC Questions: 0 - Answers BOTH questions correctly 1c. LOC Commands: 0 - Performs BOTH tasks correctly 2. Best Gaze: 0 - Normal 3. Visual: 0 - No visual loss 4. Facial Palsy: 0 - Normal symmetrical movements 5a. Left Arm: 0 - No drift; arm holds 90 (or 45) degrees for full 10 seconds (pronator drift and increased weakness on the LUE when compared to the RUE. ) 5b. Right Arm: 0 - No drift; arm holds 90 (or 45) degrees for full 10 seconds 6a. Left Le - No drift; leg holds 30-degree position for full 5 seconds (No drift but, still weaker LLE. I can easily push the leg down on the Left but not on the R) 6b. Right Le - No drift; leg holds 30-degree position for full 5 seconds 7. Limb Ataxia: 0 - Absent 8. Sensory: 1 - [id number]-yv-[id number] sensory loss; 9. Best Language: 0 - No aphasia; normal 10. Dysarthria: 0 - Normal 11. Extinction and Inattention: 0 - No abnormality Total: 1 Stroke Questions Stroke Team Activated: No D/C Instructions Diet Diet Order/Speech Therapy: INPATIENT Hospital Diet / Speech Therapy Order(s) 09/08/25 13:09 Diet: Cardiac - Heart Healthy Food consistency:: Regular Liquid Consistency:: Regular/Thin Dietary Modifications:: Consistent Carbohydrate Discharge order: Continue INPATIENT Hospital Diet / Speech Therapy Orders: Yes Weight Bearing Status: Full weight bearing Keep extremity elevated above heart level: Legs Call your doctor if you observe: Fever of 101 or Higher, Inability to urinate, Shortness of breath, Dizziness, Fainting spells, Swelling in the ankles, Chest pain, Increased palpitations (irregular heartbeat), Calf discomfort, Uncontrolled pain and - (STROKE symptoms: facial droop, slurred speech, inability to get words out, weakness on 1 side of the body and not the other, numbness on 1 side of the body and not the other, inability to maintain your balance sitting or standing, vertigo. ) DC O2, CPAP, BIPAP Needs PSN CPAP & BiPAP: BiPAP & CPAP Settings per PSN Fraction of Inspired Oxygen ( 09/24/25 21:30 FIO2) Home O2 Discharge instructions: No Pending Tests Upon Discharge: none Please Follow Up With: Mary Jane Eldridge MD When: Appts are listed later in this document. You will also be following up with Meghann Cuevas from neurology, [facility] and Dr. Gopi Cuellar from vascular surgery. I also recommend you follow up with an eye doctor for the transient blind spots in the left eye and the stars you see at times. Meaningful Use Info Meaningful Use Meaningful Use Diagnoses (Choose all that apply): Ischemic CVA CVA Therapy Assessed for PT,OT and/or ST?: Yes Ischemic Stroke Antithrombotic order at d/c?: Yes Dx of Atrial fib/flutter?: No Anticoagulant at discharge?: No Reason anticoagulant not ordered: Treatment not Indicated Statin Dosing Therapy Reference: STATIN DOSE THERAPY REFERENCE: * Patients > 75 years receive moderate or high dose statin therapy. * Patients 75 years or YOUNGER should receive HIGH intensity statin dose unless contraindicated. You will be required to document reason for non-treatment if statin daily dose does not meet guidelines. HIGH DOSE STATIN THERAPY DAILY Atorvastatin > than or = to 40 mg Rosuvastatin > than or = to 20 mg Amlodipine + Atorvastatin > than or = to 2.5/40 mg Ezetimibe + Simvastatin 10/80 mg Simvastatin 80mg Statins at discharge?: Yes If patient is 75 or younger, pt will be discharged on HIGH intensity statin.: Yes Primary Dx Acute Ischemic CVA?: Yes IV thrombolytic ordered during stay?: No Reason IV thrombolytic not ordered: Procedure not Indicated Discharge Plan Admission Admit Date/Time: 09/07/25 15:00 Primary Reason for Your Visit: Post stroke debility. Attending Provider: Wendy Shaw Primary Care Provider: Mary Jane Eldridge Consulting Providers: Chano Bradley Chi Instructions Patient Instructions: Carotid Artery Problems: Stroke, Discharge Instructions for Stroke Additional Instructions / Restrictions: 1. You had a stroke on the R side of the brain. You have arteriosclerosis of the blood vessels in the brain. You also have severe narrowing of the LEFT carotid artery in the neck. The left carotid artery has greater than 70% stenosis...... stenosis means narrowing of the artery. This degree of stenosis puts you at significantly increased risk for having a stroke on the left side of the brain. We are making you an appointment to follow-up with a vascular surgeon to discuss procedures to open this artery. The surgeon's name is Dr. Gopi Cuellar and he works at [facility]. 2. Your heart does not squeeze normally. Normally when the heart squeezes it squeezes out 55 to 65% of the blood. Your heart only squeezes at 45 to 50% of the blood and this is called your ejection fraction. You had a cardiac catheterization that identified arterial sclerosis/stenosis in all 3 major arteries supplying the heart. You had 40% stenosis of the left anterior descending artery, 40% stenosis of the proximal circumflex artery and 50% stenosis of the right coronary artery. There is no indication for any intervention such as a stent at this time but you must control your cardiac risk factors to prevent the disease from worsening. This means keeping your blood pressure less than 130/80, keeping the hemoglobin A1c under 7 (preferably under 6.5%) and keeping the LDL (bad cholesterol) 70 or less. You should ALWAYS know these numbers. Your HGBA1C at admission to the hospital was 6.3 and that was on no medication. You are taking a medication called Jardiance that helps the heart to perform better when it is squeezing. This drug can also lower blood sugar. Your blood sugars have been good on Jardiance alone so I am not going to continue the Glucophage that was started a the previous hospital. Do NOT gain any weight and watch your carbohydrate intake. Your doctor will want ot repeat the HGBA1C in about 3 months. 3. You can not drive. We have made referral to a drivers rehab program at [facility] in [place]. When you are ready they will test you to make sure that you are safe to drive. 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 4. You will need to follow up with a marketing agent for the coronary artery disease and the cardiomyopathy (he reduced ejection fraction of the heart). 5. You have been referred to a neurologist to follow-up with you for the stroke. 6. Your BP is well controlled on the current medications. 7. You will need to have a lipid panel and a liver panel in 6 weeks. This is to check the cholesterol on the Atorvastatin (also called Lipitor) and the liver tests.......Lipitor can cause the liver enzymes to increase. 7. If you or your family have any questions after you leave rehab please do not hesitate to call me. Please do not ignore the recommendations I have made. You are at high risk for a stroke on the left side of the brain. There is surgery available to open up the left carotid artery to decrease the risk of stroke. OFFICE: [phone] CELL: [phone] NURSES STATION ON REHAB: [phone] Discharge Orders/Prescriptions Prescriptions: Continued aspirin 81 mg tablet,chewable 1 tab PO DAILY atorvastatin [Lipitor] 80 mg tablet 80 mg PO QHS Qty: 30 0RF clopidogrel [Plavix] 75 mg tablet 75 mg PO DAILY Qty: 7 0RF Rx Instructions: you can discontinue after last dose. Jardiance 10 mg tablet 10 mg PO DAILY Qty: 30 0RF sacubitril-valsartan [Entresto] 24-26 mg tablet 1 tab PO BID Qty: 60 0RF Discontinued meclizine 25 mg tablet 50 mg PO DAILY PRN (Reason: dizziness or vertigo) metformin [Glucophage XR] 500 mg tablet extended release 24 hr 500 mg PO DAILY Other Ambulatory Orders: 30 Day Event Recorder Preventi (Routine) Timeframe: 1 Day Facility: [facility] - Location: Cardiovascular Services Ordered By: Dr. Wendy Shaw Referrals / Follow Up: [facility] [Provider Group] Gopi Cuellar MD [Med Staff - Active Staff, Vascular Surgery] - 10/24/25 3:00 pm Mary Jane Eldridge MD [Primary Care Provider, Medical] - 10/10/25 9:45 am Referral Note: appt time is at 10am but arrive 15 minutes early Meghann Cuevas NP-C [Med Staff - Adv Practice Prof, Neurology] - 10/17/25 9:00 am Disposition Disposition (needs filled in before D/C Order can be placed): Home, Self Care Charges/Coding Visit Charges Inpatient E&M: 92596 Disch Hosp >30min Hospital Course RU Operations None Procedures Cardiac catheterization (This was done at [facility] Collection [facility] in [facility] Summary of Care Provided Minutes Spent on Discharge: 50 Hospital Course: Ruel Mcwilliams is a 65 YO male with a PMH of DM II, obesity and HLD who presented to [facility] in [place] on 09/01/2025 complaining of dizziness, numbness of his left hand and blurred vision. He went on to develop numbness of the left arm and left leg and weakness of the left arm and left leg. Imaging showed an acute right medial medullary infarct without hemorrhage. There was significant left internal carotid artery stenosis. There was mixed large and small vessel cerebrovascular disease. Hemoglobin A1c was 6.3 ( had been as high as 10.4 at one time and he was on Metformin but, he lost weight and HGBA1C dropped to 5.7 so he stopped the metformin). TTE showed a decreased EF 0f 45-50% and he underwent a cardiac catheterization. The cardiac catheterization showed a 40% stenosis of the mid LAD, 40% stenosis of the proximal circumflex and 50% stenosis of the mid RCA. No intervention was indicated and he is to be managed medically. He was started on dual antiplatelet agents with aspirin and Plavix, Entresto, atorvastatin 80 mg and a beta isidra. The beta isidra was discontinued due to bradycardia. He was transferred to the acute inpt rehab unit at [facility] on 09/07/2025 for 3 hours of therapy daily to restore function/independence after near his level prior to the stroke. A carotid ultrasound was obtained while he was a patient on rehab and it showed greater than 70% stenosis of the left internal carotid artery and less than 50% stenosis of the right internal carotid artery. He had swelling in his left upper extremity and a venous ultrasound was obtained which was negative for DVT. The likely etiology of the swelling is secondary to the stroke with decreased use of the left upper extremity. He was transferred on Jardiance 10 mg daily and Glucophage XR 500 mg daily. Blood sugars were monitored AC and at bedtime. Blood sugars were under excellent control and the Glucophage XR was held. The blood sugars remained in excellent control on a cardiac/carb consistent diet and Glucophage was not continued at discharge from rehab. While on rehab he told me that he had been having some visual problems with his left eye. He would. He would periodically see stars in his left eye and then have transient blind spots in the left eye. He had not seen an urgent care physician assistant. He denied any cephalgia and also denied any history of migraine cephalgia. At presentation to rehab his total bilirubin was elevated at 1.48 and the ALT was elevated at 66. AST and alkaline phosphatase were normal. This was repeated on 09/24/2025 and the liver profile was normal. He reportedly had proteinuria at the previous hospital and a UA was checked while on rehab and it was negative for protein. Juarez did well on the rehab unit temp improved significantly. At the time of discharge he has completed 13 steps in the stairwell with 1 handrail on 1 side and using a small-based quad cane on the other side. He is contact-guard assist for stair climbing. He has ambulated up to 1000 feet with a front wheel walker on various surfaces at mod I. He is ambulated on the rehab floor up to 330 feet with a quad cane at contact-guard assist. He is able to do 10 sit to stands using his bilateral upper extremities to rise in 30 seconds. He is independent with eating and modified independent with grooming, bathing, upper body dressing, lower body dressing, toileting and toilet transfer. He is standby assist for tub/shower transfer. He was released from speech therapy prior to discharge from acute rehab. Juarez was discharged home on 10/02/2025 and will have outpatient PT/OT at [facility]. Follow-up appointments are scheduled for Meghann Cuevas NP from neurology, Dr. Mary Jane Eldridge (PCP), [facility] and Dr. Gopi Cuellar from vascular surgery. I also recommend he follow-up with ophthalmology for complete eye exam given that he has had transient loss of vision in the left eye and he has greater than 70% stenosis of the left carotid artery. A referral was made to a drivers rehab program at [facility] in [place]. He understands that he will not be allowed to drive until he can pass a full driving test. 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 He should have a follow-up lipid and liver panel in 4 to 6 weeks since he is now on atorvastatin 80 mg daily. Vital signs at time of discharge from rehab are heart rate 72, blood pressure 114/80, respiratory rate 17 and he has a pulse ox of 96% on room air.
[2025-10-02 13:09] VITALS: BMI 31.8
--- NOTE | 2025-10-02 13:11 | CASEMGMT ---
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 Faxed referral to [facility] Loren Last BUSINESS SYSTEM CONSULTANT [employer]ESS OPERATOR [employer]
== END 2025-10-02 13:09 | disposition home or self-care (01) | DRG 57 ==
PROVIDERS: Admitting Provider Family Medicine Geriatric Medicine; PCP Family Medicine; Referring Provider Family Medicine Geriatric Medicine; Visit Provider Internal Medicine
DX: I69.354 Hemiplegia and hemiparesis following cerebral infarction affecting left non-dominant side (principal); I42.9 Cardiomyopathy, unspecified; I50.22 Chronic systolic (congestive) heart failure; G47.34 Idiopathic sleep related nonobstructive alveolar hypoventilation; E11.65 Type 2 diabetes mellitus with hyperglycemia; I11.0 Hypertensive heart disease with heart failure; E66.9 Obesity, unspecified; I25.2 Old myocardial infarction; E78.00 Pure hypercholesterolemia, unspecified; I25.10 Atherosclerotic heart disease of native coronary artery without angina pectoris; R00.1 Bradycardia, unspecified; H53.8 Other visual disturbances; M79.662 Pain in left lower leg; M79.89 Other specified soft tissue disorders; H53.9 Unspecified visual disturbance; Z79.84 Long term (current) use of oral hypoglycemic drugs; Z79.02 Long term (current) use of antithrombotics/antiplatelets; Z79.82 Long term (current) use of aspirin; G47.00 Insomnia, unspecified; Z68.32 Body mass index [BMI] 32.0-32.9, adult; Z79.899 Other long term (current) drug therapy; R20.0 Anesthesia of skin
CPT/HCPCS: 36415; 80053; 80061; 81001; 82962; 83735; 84100; 85025; 85027; 92523; 92610; 93880; 93971; 94668; 94762; 97110; 97112; 97116; 97162; 97167; 97530; 97535; 97802; 97803